=== PATIENT | female | born 1970 | race African-American/Black ===

== ENCOUNTER 2017-03-18 10:15 | Emergency (ER) | payer MEDICAID ==
[2017-03-18] MEDS ORDERED: Ketorolac 60 MG/2 ML SDV IM ONE (11:18)
--- NOTE | 2017-03-18 11:23 | EDM.PDOC ---
ED HPI GENERAL MEDICAL PROBLEM - General Chief Complaint: Back Pain or Injury Stated Complaint: BACK PAIN Time Seen by Provider: 03/18/17 11:00 Source of Information: Reports: Patient History Limitations: Reports: No Limitations - History of Present Illness INITIAL COMMENTS - FREE TEXT/NARRATIVE: Peyton Quintanilla : 1970 M# [id number] # [id number] HISTORY AND PHYSICAL: History of present illness: [Patient comes to the emergency room complaining of mid low back pain. Reports that she was diagnosed with spondylolisthesis about 1 year ago by a provider in [place]. Admits to chronic low-level back pain. Pain has become more intense over the past 2 days after walking on a treadmill for exercise. She typically does not exercise. The pain is in the same area as her chronic pain and has not changed other than in intensity. Rates her pain as 9 out of 10. She follows regularly with MOISÉS Anderson at [facility], but hasnt discussed this with her yet. Complains of mid sacral area pain which she describes as a throbbing sensation. Shes been prescribed diclofenac which she takes 1-2 tabs daily for her bilateral knee pain. She's not taken any other medications for her symptoms. Denies fever and chills. No change with urination , dysuria, or incontinence of bowel or urine. She currently is having her period. No radiation of pain to her hips down her buttocks or either leg. No weakness or difficulty walking. Denies chest pain shortness of breath and difficulty breathing. Hx of HTN, depression. ] Review of systems: As per history of present illness and below otherwise all systems reviewed and negative. Past medical history: As per history of present illness and as reviewed below otherwise noncontributory. Surgical history: As per history of present illness and as reviewed below otherwise noncontributory. Social history: No reported history of drug or alcohol abuse. Family history: As per history of present illness and as reviewed below otherwise noncontributory. Physical exam: Gen.: Well-developed overweight female in no acute distress. Appears very comfortable lying on exam bed. HEENT: Atraumatic, normocephalic. Oral mucous membranes are pink and moist. Lungs: Clear to auscultation, breath sounds equal bilaterally. Heart: S1S2, regular rate and rhythm. Negative for murmur. Abdomen: Soft, nondistended, nontender. No CVA tenderness. Pelvis: Stable nontender. Genitourinary: Deferred. Rectal: Deferred. Back: Point tenderness over lower lumbar and upper sacral areas. Negative straight leg raise. Patellar reflexes are 2+ and equal bilaterally. Extremities: Atraumatic, negative for cords or calf pain. Neurovascular unremarkable. Neuro: Awake, alert, oriented. Motor and sensory unremarkable throughout. Exam nonfocal. Diagnostics: [Lumbar x-ray, UA w/ micro] Therapeutics: [Toradol 60mg IM] Impression: [Low back pain] Plan: [Toradol 60 mg given IM in the ER. Rx written for hydrocodone 5/325 mg #10 sig one by mouth twice a day as needed for pain 0 refills. Reviewed with patient that her urinalysis shows blood which would be expected due to her menses and no other abnormalities. L/S x-ray shows no acute findings. Of note, no spondylolisthesis is visualized by radiologist. Patient is encouraged to use [id number] analgesics for mild to moderate pain. She has the prescription for hydrocodone to use as needed. This medication will not be refilled through the ER. Heating pads and ice packs as needed. Recommend gentle exercises and stretching. She is in agreement with today's plan. All of her questions are answered and concerns are addressed. ] Definitive disposition and diagnosis as appropriate pending reevaluation and review of above. Lower Back Pain Score (Numeric/FACES): 9 - Related Data Allergies Allergy/AdvReac Type Severity Reaction Status Date / Time No Known Allergies Allergy Verified 03/18/17 11:31 Home Meds: Home Meds Atenolol 50 mg PO DAILY 03/18/17 [History] Hydrochlorothiazide 25 mg PO DAILY 03/18/17 [History] Losartan [Cozaar] 25 mg PO DAILY 03/18/17 [History] Venlafaxine [Effexor XR] 150 mg PO DAILY 03/18/17 [History] buPROPion HCl [Wellbutrin Xl] 300 mg PO DAILY 03/18/17 [History] ED ROS GENERAL - Review of Systems Review Of Systems: ROS reveals no pertinent complaints other than HPI. ED EXAM,LOWER BACK PAIN/INJURY - Physical Exam Exam: See Below Course - Vital Signs Last Recorded V/S: Last Vital Signs Temp 96.8 F 03/18/17 12:55 Pulse 58 L 03/18/17 12:55 Resp 18 03/18/17 12:55 BP 160/90 H 03/18/17 12:55 Pulse Ox 97 03/18/17 12:55 - Orders/Labs/Meds Labs: Laboratory Tests 03/18/17 Range/Units 11:25 Urine Color DARK YELLOW Urine Appearance CLOUDY Urine pH 5.5 (5.0-8.0) Ur Specific [place] 1.020 (1.001-1.035) Urine Protein TRACE (NEGATIVE) mg/dL Urine Glucose (UA) NEGATIVE (NEGATIVE) mg/dL Urine Ketones NEGATIVE (NEGATIVE) mg/dL Urine Occult Blood LARGE H (NEGATIVE) Urine Nitrite NEGATIVE (NEGATIVE) Urine Bilirubin SMALL H (NEGATIVE) Urine Ictotest NEGATIVE Urine Urobilinogen 0.2 (<2.0) EU/dL Ur Leukocyte Esterase NEGATIVE (NEGATIVE) Urine RBC 117-122 (0-2/HPF) Urine WBC 0-2 (0-5/HPF) Ur Epithelial Cells RARE (NONE-FEW) Urine Bacteria RARE (NEGATIVE) Meds: Medications Discontinued Medications Generic Name Dose Route Start Last Admin Trade Name Freq PRN Reason Stop Dose Admin Ketorolac Tromethamine 60 mg 03/18/17 11:18 03/18/17 11:39 Toradol IM 03/18/17 11:19 60 mg ONETIME ONE Administration Departure - Departure Time of Disposition: 12:40 Disposition: Home, Self-Care 01 Clinical Impression: Chronic low back pain - Discharge Information Instructions: Back Pain, Adult, Lenq-ad-Avan Referrals: PCP,None [Primary Care Provider] - Forms: ED Department Discharge Additional Instructions: The following information is given to patients seen in the emergency department who are being discharged to home. This information is to outline your options for follow-up care. We provide all patients seen in our emergency department with a follow-up referral. The need for follow-up, as well as the timing and circumstances, are variable depending upon the specifics of your emergency department visit. If you don't have a primary care physician on staff, we will provide you with a referral. We always advise you to contact your personal physician following an emergency department visit to inform them of the circumstance of the visit and for follow-up with them and/or the need for any referrals to a consulting specialist. The emergency department will also refer you to a specialist when appropriate. This referral assures that you have the opportunity for follow-up care with a specialist. All of these measure are taken in an effort to provide you with optimal care, which includes your follow-up. Under all circumstances we always encourage you to contact your private physician who remains a resource for coordinating your care. When calling for follow-up care, please make the office aware that this follow-up is from your recent emergency room visit. If for any reason you are refused follow-up, please contact the [facility] emergency department at and asked to speak to the emergency department charge nurse. [address] [id number] Follow up with your primary care provider at the clinic listed above as scheduled next week. Recommend diclofenac 3 times daily, may alternate with Tylenol as needed for continued discomfort. You have been given a prescription for hydrocodone. This is for moderate to severe pain. Do not take Tylenol with this medication. Heating pad, ice packs. Gentle stretching. Return to ER as needed as discussed.
--- NOTE | 2017-03-18 12:01 | CR ---
Lumbar spine 3 views There is a very gentle leftward convex rotoscoliosis apex leftward at L2. Pedicles are intact and di scs are generally well preserved in stature. There is no spondylolysis or spondylolisthesis. Impression: Gentle rotoscoliosis without evidence of acute pathology. No spondylolysis or spondyloli sthesis and incidental note is made of prior cholecystectomy
[2017-03-18 12:57] VITALS: BP 160/90
== END 2017-03-18 12:55 | disposition home or self-care (01) ==
LOC: MW.ED 10:15
DX: G89.29 Other chronic pain (principal); M54.5 Low back pain
CPT/HCPCS: 72100; 81001; 96372; 99283; J1885; 99282

== ENCOUNTER 2017-09-20 15:58 | Emergency (ER) | payer MEDICAID ==
[2017-09-20] MEDS ORDERED: Azithromycin 250 MG Tab PO ONE (16:22)
--- NOTE | 2017-09-20 16:25 | EDM.PDOC ---
ED HPI GENERAL MEDICAL PROBLEM - General Chief Complaint: Genitourinary Problem Stated Complaint: std check Time Seen by Provider: 09/20/17 16:10 Source of Information: Reports: Patient History Limitations: Reports: No Limitations - History of Present Illness INITIAL COMMENTS - FREE TEXT/NARRATIVE: History of present illness: []Patient comes in after being exposed to chlamydia from her . Patient states she has been feeling well and excessively tired. She does take meds for depression that was the first illness that she has this infection. Review of systems: As per history of present illness and below otherwise all systems reviewed and negative. Past medical history: As per history of present illness and as reviewed below otherwise noncontributory. Surgical history: As per history of present illness and as reviewed below otherwise noncontributory. Social history: No reported history of drug or alcohol abuse. Family history: As per history of present illness and as reviewed below otherwise noncontributory. Physical exam: General: Well developed, well nourished in NAD HEENT: Atraumatic, normocephalic, pupils reactive, negative for conjunctival pallor or scleral icterus, mucous membranes moist, throat clear, neck supple, nontender, trachea midline. Lungs: Clear to auscultation, breath sounds equal bilaterally, chest nontender. Heart: S1S2, regular, negative for clicks, rubs, or JVD. Abdomen: Soft, nondistended, nontender. Negative for masses or hepatosplenomegaly. Negative for costovertebral tenderness. Pelvis: Stable nontender. Genitourinary: Deferred. Rectal: Deferred. Extremities: Atraumatic, negative for cords or calf pain. Neurovascular unremarkable. Neuro: Awake, alert, oriented. Cranial nerves II through XII unremarkable. Cerebellum unremarkable. Motor and sensory unremarkable throughout. Exam nonfocal. Diagnostics: [] Therapeutics: []Zithromax 1 g while in the ED Impression: []Chlamydia exposure Plan: []No intercourse until symptoms gone and to her sexual partner is completely treated Definitive disposition and diagnosis as appropriate pending reevaluation and review of above. - Related Data Allergies Allergy/AdvReac Type Severity Reaction Status Date / Time No Known Allergies Allergy Verified 09/20/17 16:16 Home Meds: Home Meds Hydrochlorothiazide 25 mg PO DAILY 03/18/17 [History] Losartan [Cozaar] 25 mg PO DAILY 03/18/17 [History] Venlafaxine [Effexor XR] 150 mg PO DAILY 03/18/17 [History] buPROPion HCl [Wellbutrin Xl] 300 mg PO DAILY 03/18/17 [History] Metoprolol Tartrate [Lopressor] 50 mg PO DAILY 09/20/17 [History] Past Medical History - Past Health History Medical/Surgical History: Denies Medical/Surgical History Cardiovascular History: Reports: High Cholesterol, Hypertension Psychiatric History: Reports: Depression - Infectious Disease History Infectious Disease History: Reports: Chicken Pox Social & Family History - Family History Family Medical History: Noncontributory - Tobacco Use Smoking Status *Q: Never Smoker Second Hand Smoke Exposure: No - Caffeine Use Caffeine Use: Reports: None - Recreational Drug Use Recreational Drug Use: No ED ROS GENERAL - Review of Systems Review Of Systems: See Below (See history of present illness) ED EXAM, RENAL/ - Physical Exam Exam: See Below (See history of present illness) Course - Vital Signs Last Recorded V/S: Last Vital Signs Temp 96.6 F 09/20/17 16:15 Pulse 68 09/20/17 16:15 Resp 18 09/20/17 16:15 BP 135/80 09/20/17 16:15 Pulse Ox 98 09/20/17 16:15 - Orders/Labs/Meds Meds: Medications Discontinued Medications Generic Name Dose Route Start Last Admin Trade Name Fortinoq PRN Reason Stop Dose Admin Azithromycin 1,000 mg 09/20/17 16:22 Zithromax PO 09/20/17 16:23 ONETIME ONE Departure - Departure Time of Disposition: 16:25 Disposition: Home, Self-Care 01 Condition: Good Clinical Impression: Exposure to chlamydia - Discharge Information Referrals: Tiffany Cuevas NP [Primary Care Provider] - Additional Instructions: The following information is given to patients seen in the emergency department who are being discharged to home. This information is to outline your options for follow-up care. We provide all patients seen in our emergency department with a follow-up referral. The need for follow-up, as well as the timing and circumstances, are variable depending upon the specifics of your emergency department visit. If you don't have a primary care physician on staff, we will provide you with a referral. We always advise you to contact your personal physician following an emergency department visit to inform them of the circumstance of the visit and for follow-up with them and/or the need for any referrals to a consulting specialist. The emergency department will also refer you to a specialist when appropriate. This referral assures that you have the opportunity for follow-up care with a specialist. All of these measure are taken in an effort to provide you with optimal care, which includes your follow-up. Under all circumstances we always encourage you to contact your private physician who remains a resource for coordinating your care. When calling for follow-up care, please make the office aware that this follow-up is from your recent emergency room visit. If for any reason you are refused follow-up, please contact the [facility] Emergency Department at and asked to speak to the emergency department charge nurse. [facility] [address] [place] [id number]
[2017-09-20 18:21] VITALS: BP 135/86
== END 2017-09-20 16:34 | disposition home or self-care (01) ==
LOC: MW.ED 15:58
DX: Z20.2 Contact with and (suspected) exposure to infections with a predominantly sexual mode of transmission (principal); I10 Essential (primary) hypertension; E78.00 Pure hypercholesterolemia, unspecified; Z79.899 Other long term (current) drug therapy
CPT/HCPCS: 99283; A9270; 99282

== ENCOUNTER 2017-12-04 14:07 | Emergency (ER) | payer MEDICAID ==
[2017-12-04 15:39] VITALS: BP 145/96
--- NOTE | 2017-12-04 16:08 | EDM.PDOC ---
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 PAIN Time Seen by Provider: 12/04/17 16:05 Source of Information: Reports: Patient History Limitations: Reports: No Limitations - History of Present Illness INITIAL COMMENTS - FREE TEXT/NARRATIVE: HISTORY AND PHYSICAL: []47-year-old female presenting with concerns over possible STD pelvic pain History of Present Illness: []Notable that patient was here in September with STD check not followed up is recommended with her primary care at [facility] She does complain of having vaginal discharge malodorous Review of Systems: As per history of present illness and below otherwise all systems reviewed and negative. Past medical history: As per history of present illness and as reviewed below otherwise noncontributory. Surgical history: As per history of present illness and as reviewed below otherwise noncontributory. Social history: No reported history of drug or alcohol abuse. Family history: As per history of present illness and as reviewed below otherwise noncontributory. Physical exam: Alert female answering questions appropriately, she speaking in full sentences without any shortness of breath. HEENT: Atraumatic, normocehpalic, pupils reactive, negative for conjunctival pallor or scleral icterus, mucous membranes moist, throat clear, neck supple, nontender, trachea midline. Lungs: Clear to auscultation, breath sounds equal bilaterally, chest non tender. Heart: S1S2, regular, negative for clicks, rubs, or JVD. Abdomen: Soft, mildly distended, tender left pelvis. Negative for masses or hepatossplenmegaly. Negative for costovertebral tenderness. Pelvis: Stable nontender. Genitourinary: Deferred. Rectal: Deferred Extremities: Atraumatic, negative for cords or calf pain. Neurovascular unremarkable. Neuro: Awake, alert, oriented. Cranial nerves II through XII unremarkable. Cerebellum unremarkable. Motor and sensory unremarkable throughout. Exam nonfocal. Diagnostics: []UA Chlamydia GC Trichomonas Therapeutics: [] Impression: []Bacterial vaginitis Plan: []MetroGel daily 5 days Follow up in one week with your primary care provider Repeat ultrasound in 8 weeks Return to emergency room Definitive disposition and diagnosis as appropriate pending reevaluation and review of above. Onset: Gradual Duration: Day(s): pelvic Pain Score (Numeric/FACES): 7 - Related Data Allergies Allergy/AdvReac Type Severity Reaction Status Date / Time No Known Allergies Allergy Verified 12/04/17 15:34 Home Meds: Home Meds Hydrochlorothiazide 50 mg PO DAILY 03/18/17 [History] Losartan [Cozaar] 50 mg PO DAILY 03/18/17 [History] Venlafaxine [Effexor XR] 225 mg PO DAILY 03/18/17 [History] buPROPion HCl [Wellbutrin Xl] 100 mg PO DAILY 03/18/17 [History] metroNIDAZOLE [Metrogel-Vaginal] 70 gm VG DAILY #5 gel.w.appl 12/04/17 [Rx] Past Medical History - Past Health History Medical/Surgical History: Denies Medical/Surgical History HEENT History: Reports: Sinusitis Cardiovascular History: Reports: High Cholesterol, Hypertension Psychiatric History: Reports: Depression - Infectious Disease History Infectious Disease History: Reports: None - Past Surgical History HEENT Surgical History: Reports: Myringotomy w Tube(s), Naso-Sinus Surgery Social & Family History - Family History Family Medical History: Noncontributory - Tobacco Use Smoking Status *Q: Never Smoker Second Hand Smoke Exposure: No - Caffeine Use Caffeine Use: Reports: None - Alcohol Use Days Per Week of Alcohol Use: 2 Number of Drinks Per Day: 3 Total Drinks Per Week: 6 - Recreational Drug Use Recreational Drug Use: No ED ROS GENERAL - Review of Systems Review Of Systems: ROS reveals no pertinent complaints other than HPI. ED EXAM, RENAL/ - Physical Exam Exam: See Below (see dictation) Course - Vital Signs Last Recorded V/S: Last Vital Signs Temp 36.4 C 12/04/17 15:36 Pulse 78 12/04/17 15:36 Resp 20 12/04/17 15:36 BP 145/96 H 12/04/17 15:36 Pulse Ox 96 12/04/17 15:36 - Orders/Labs/Meds Orders: Active Orders 24 hr Category Date Time Status Pelvis Non OB Comp [US] Stat Exams 12/04/17 16:08 Taken CHLAMYDIA AND GONORRHEA BY [facility] Stat Lab 12/04/17 16:00 Received Labs: Laboratory Tests 12/04/17 Range/Units 16:00 Ana species DNA NEGATIVE (NEGATIVE) Gardnerella DNA Probe POSITIVE H (NEGATIVE) Trichomonas DNA Probe NEGATIVE (NEGATIVE) Departure - Departure Time of Disposition: 18:10 Disposition: Home, Self-Care 01 Condition: Good Clinical Impression: Bacterial vaginosis - Discharge Information Prescriptions: metroNIDAZOLE [Metrogel-Vaginal] 70 gm VG DAILY #5 gel.w.appl Instructions: Bacterial Vaginosis Referrals: Tiffany Cuevas NP [Primary Care Provider] - Forms: ED Department Discharge Additional Instructions: The following information is given to patients seen in the emergency department who are being discharged to home. This information is to outline your options for follow-up care. We provide all patients seen in our emergency department with a follow-up referral. The need for follow-up, as well as the timing and circumstances, are variable depending upon the specifics of your emergency department visit. If you don't have a primary care physician on staff, we will provide you with a referral. We always advise you to contact your personal physician following an emergency department visit to inform them of the circumstance of the visit and for follow-up with them and/or the need for any referrals to a consulting specialist. The emergency department will also refer you to a specialist when appropriate. This referral assures that you have the opportunity for followup care with a specialist. All of these measure are taken in an effort to provide you with optimal care, which includes your followup. Under all circumstances we always encourage you to contact your private physician who remains a resource for coordinating your care. When calling for followup care, please make the office aware that this follow-up is from your recent emergency room visit. If for any reason you are refused follow-up, please contact the emergency department at and asked to speak to the emergency department charge nurse. Follow-up with your primary care provider in one week Prescription for MetroGel has been ordered once a day 5 days Vaginal rest while this is being used Return to emergency room as needed and discussed - My Orders Last 24 Hours: My Active Orders 12/04/17 16:00 CHLAMYDIA AND GONORRHEA BY [facility] Stat 12/04/17 16:08 Pelvis Non OB Comp [US] Stat - Assessment/Plan Last 24 Hours: My Active Orders 12/04/17 16:00 CHLAMYDIA AND GONORRHEA BY [facility] Stat 12/04/17 16:08 Pelvis Non OB Comp [US] Stat
--- NOTE | 2017-12-05 16:36 | US ---
EXAM DATE: 12/04/17 PATIENT'S AGE: 47 Patient: MORAIMA BABIN Facility: [place], [place] Site . Site : 1970 Study: US Pelvis [id number]/2017 5:13:52 PM Ordering Physician: Doctor Parker Final Report: HISTORY: Low to mid pelvic pain for 2 weeks. TECHNIQUE: Transvaginal pelvic ultrasound. COMPARISON: No prior. FINDINGS: Uterus measures 9.1 x 5.3 x 5.7 cm in size. Endometrial stripe thickness is borderline thickened at 16 mm. 1.3 cm anterior uterine mass is likely a fibroid. Cervical nabothian cysts are present. - Left ovary measures 1.8 x 1.7 x 2.5 cm in size. There is a irregularly shaped cystic structure within the left ovary which measures approximately 1.1 cm in size. This may relate to a collapsing cyst or follicle. Blood flow is detected within the left ovary without findings of torsion. - Right ovary measures 2.1 x 1.8 x 1.0 cm in size and appears normal. - Trace amount of pelvic free fluid. IMPRESSION: 1. 1 cm cystic structure with irregular morphology within the left ovary may relate to a collapsing cyst or follicle. Blood flow is detected within the left ovary without findings of torsion. 2. Borderline mildly abnormally thickened endometrial echo complex. Consider ultrasound followup for re-evaluation of endometrial stripe thickness in 6-8 weeks. Anterior uterine fibroid. 3. Trace pelvic free fluid. Dictated by Tom Garcia MD @ 12/04/2017 5:23:58 PM Dictated by: Tom Garcia MD @ 12/04/2017 17:24:03 (Electronic Signature) Report Signed by Proxy. [facility] CENTERCarlene
== END 2017-12-04 18:30 | disposition home or self-care (01) ==
LOC: MW.ED 14:07
DX: N76.0 Acute vaginitis (principal); I10 Essential (primary) hypertension; E78.00 Pure hypercholesterolemia, unspecified; Z79.899 Other long term (current) drug therapy
CPT/HCPCS: 76856; 76856-26; 87480; 87491; 87510; 87591; 87660; 99283; 99284-25

== ENCOUNTER 2018-11-09 09:29 | Day surgery (SDC) | payer BC, MEDICAID ==
[2018-11-08 10:38] LABS: CHLORIDE,CL 103 mmol/L (98-107); SODIUM,NA 140 mmol/L (136-145)
[~2018-11-09 09:29] MED LIST: Lactated Ringers 1,000 ML IV SCH; Sodium Chloride 0.9% 10 ML SDV IV PRN; Sodium Chloride 0.9% 10 ML Syringe FLUSH PRN; Sodium Chloride 0.9% 2.5 ML Syringe FLUSH PRN; ceFAZolin 2 GM in Premix Bag 1 BAG IV ONE
--- NOTE | 2018-11-09 10:39 | PCM.PREANE ---
Preanesthetic Assessment - Anesthesia/Transfusion/Family Hx Anesthesia History: Prior Anesthesia Reaction Type of Anesthesia Reaction: Excessive Nausea/Vomiting Family History of Anesthesia Reaction: No Transfusion History: No Prior Transfusion(s) - Review of Systems General: No Symptoms Pulmonary: No Symptoms Cardiovascular: No Symptoms Gastrointestinal: No Symptoms Neurological: No Symptoms Other: Reports: None - Physical Assessment NPO Status Date: 11/08/18 Height: 55 ft Weight: 99.337 kg ASA Class: 2 Mental Status: Alert & Oriented x3 Airway Class: Mallampati = 1 Dentition: Reports: Normal Dentition ROM/Head Extension: Full Lungs: Clear to Auscultation, Normal Respiratory Effort Cardiovascular: Regular Rate, Regular Rhythm - Lab Values: Laboratory Last Values WBC 5.19 K/uL (4.0-11.0) 11/08/18 09:55 RBC 5.19 M/uL (4.30-5.90) 11/08/18 09:55 Hgb 14.4 g/dL (12.0-16.0) 11/08/18 09:55 Hct 43.4 % (36.0-46.0) 11/08/18 09:55 MCV 83.6 fL (80.0-98.0) 11/08/18 09:55 MCH 27.7 pg (27.0-32.0) 11/08/18 09:55 MCHC 33.2 g/dL (31.0-37.0) 11/08/18 09:55 RDW Std Deviation 43.3 fl (28.0-62.0) 11/08/18 09:55 RDW Coeff of Tiffany 14 % (11.0-15.0) 11/08/18 09:55 Plt Count 227 K/uL (150-400) 11/08/18 09:55 MPV 12.20 fL (7.40-12.00) H 11/08/18 09:55 Nucleated RBC % 0.0 /100WBC 11/08/18 09:55 Nucleated RBCs # 0 K/uL 11/08/18 09:55 Sodium 140 mmol/L (136-145) 11/08/18 09:55 Potassium 3.8 mmol/L (3.5-5.1) 11/08/18 09:55 Chloride 103 mmol/L (98-107) 11/08/18 09:55 Carbon Dioxide 25.5 mmol/L (21.0-32.0) 11/08/18 09:55 BUN 10 mg/dL (7.0-18.0) 11/08/18 09:55 Creatinine 0.9 mg/dL (0.6-1.0) 11/08/18 09:55 Est Cr Clr Drug Dosing 118.58 mL/min 11/08/18 09:55 Estimated GFR (MDRD) > 60.0 ml/min 11/08/18 09:55 Glucose 107 mg/dL (74-106) H 11/08/18 09:55 Calcium 9.2 mg/dL (8.5-10.1) 11/08/18 09:55 HCG, Qual NEGATIVE (NEG) 11/08/18 09:55 Blood Type O POSITIVE 11/08/18 09:55 Antibody Screen NEGATIVE 11/08/18 09:55 - Allergies Allergies/Adverse Reactions: Allergies Allergy/AdvReac Type Severity Reaction Status Date / Time No Known Allergies Allergy Verified 11/06/18 08:18 - Blood Blood Available: No - Anesthesia Plan Pre-Op Medication Ordered: None - Acknowledgements Anesthesia Type Planned: General Anesthesia Pt an Appropriate Candidate for the Planned Anesthesia: Yes Alternatives and Risks of Anesthesia Discussed w Pt/Guardian: Yes Pt/Guardian Understands and Agrees with Anesthesia Plan: Yes PreAnesthesia Questionnaire - Past Health History Medical/Surgical History: Denies Medical/Surgical History HEENT History: Reports: Impaired Vision, Sinusitis, Other (See Below) Other HEENT History: wears glasses Cardiovascular History: Reports: Hypertension Respiratory History: Reports: None Gastrointestinal History: Reports: None Genitourinary History: Reports: None 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: Musculoskeletal History: Reports: Osteoarthritis Neurological History: Reports: None Psychiatric History: Reports: Anxiety, Depression Endocrine/Metabolic History: Reports: Obesity/BMI 30+ Hematologic History: Reports: None Immunologic History: Reports: None Oncologic (Cancer) History: Reports: None Dermatologic History: Reports: None - Infectious Disease History Infectious Disease History: Reports: Chicken Pox - Past Surgical History Head Surgeries/Procedures: Reports: None HEENT Surgical History: Reports: Adenoidectomy, Myringotomy w Tube(s), Naso- Sinus Surgery, Tonsillectomy Cardiovascular Surgical History: Reports: None Respiratory Surgical History: Reports: None GI Surgical History: Reports: Cholecystectomy Female Surgical History: Reports: Tubal Ligation Endocrine Surgical History: Reports: None Neurological Surgical History: Reports: None Musculoskeletal Surgical History: Reports: None Oncologic Surgical History: Reports: None Dermatological Surgical History: Reports: None - SUBSTANCE USE Smoking Status *Q: Never Smoker Days Per Week of Alcohol Use: 7 Number of Drinks Per Day: 1 Total Drinks Per Week: 7 Recreational Drug Type: Reports: Marijuana/Hashish Recreational Drug Last Use: 11/06/18 - HOME MEDS Home Medications: Home Meds Hydrochlorothiazide 25 mg PO DAILY 03/18/17 [History] Losartan [Cozaar] 100 mg PO DAILY 03/18/17 [History] Venlafaxine [Effexor XR] 225 mg PO DAILY 03/18/17 [History] buPROPion HCl [Wellbutrin Xl] 150 mg PO DAILY 03/18/17 [History] Metoprolol Succinate 25 mg PO DAILY 11/06/18 [History] risperiDONE [RisperiDAL] 0.5 tab PO BEDTIME PRN 11/06/18 [History] - CURRENT (IN HOUSE) MEDS Current Meds: Current Medications Lactated Ringer's (Ringers, Lactated) 1,000 mls @ 125 mls/hr IV ASDIRECTED CECE Sodium Chloride (Saline Flush) 10 ml FLUSH ASDIRECTED PRN PRN Reason: Keep Vein Open Sodium Chloride (Saline Flush) 2.5 ml FLUSH ASDIRECTED PRN PRN Reason: Keep Vein Open Sodium Chloride (Normal Saline) 10 ml IV ASDIRECTED PRN PRN Reason: IV Use Discontinued Medications Cefazolin Sodium/Dextrose 2 gm (/ Premix) 50 mls @ 100 mls/hr IV ONETIME ONE Stop: 11/08/18 09:55
[2018-11-09] MEDS ORDERED: Midazolam 1 MG/ML 2 ML SDV ONE (10:59)
[2018-11-09] MEDS ORDERED: fentaNYL 100 MCG/2 ML SDV ONE ×2 (11:00→13:16)
[2018-11-09] MEDS ORDERED: Lidocaine 2% 5 ML SDV ONE (11:01)
[2018-11-09] MEDS ORDERED: Propofol 200 MG/20 ML SDV ONE (11:05)
[2018-11-09] MEDS ORDERED: HYDROmorphone 2 MG/ML Syringe ONE ×2 (13:02→14:30)
[2018-11-09] MEDS ORDERED: Ondansetron 4 MG/2 ML SDV ONE ×2 (13:08)
[2018-11-09] MEDS ORDERED: Dexamethasone 4 MG/ML 5 ML MDV ONE (13:08)
[2018-11-09] MEDS ORDERED: ceFAZolin/Dextrose,Iso-Osmotic 2 GM/50 ML Duplex Bag IV ONE (13:08)
[2018-11-09] MEDS ORDERED: Fluorescein 5 ML Vial ONE (13:14)
[2018-11-09] MEDS ORDERED: Labetalol 100 MG/20 ML MDV ONE (13:27)
[2018-11-09] MEDS ORDERED: Metoprolol Tartrate 5 MG/5 ML SDV ONE (13:37)
[2018-11-09] MEDS ORDERED: Sugammadex Sodium 200 MG/2 ML VIAL ONE (14:15)
[2018-11-09] MEDS ORDERED: Ondansetron 4 MG/2 ML SDV IVPUSH PRN (14:16)
[2018-11-09] MEDS ORDERED: Morphine 4 MG/ML Syringe IVPUSH PRN (14:16)
[2018-11-09] MEDS ORDERED: Acetaminophen/oxyCODONE 325-5 MG Tab PO PRN (14:16)
[2018-11-09] MEDS ORDERED: Ketorolac 30 MG/ML SDV IVPUSH ONE (14:16)
[2018-11-09] MEDS ORDERED: Promethazine 25 MG/ML SDV IM PRN (14:16)
[2018-11-09] MEDS ORDERED: Ketorolac 30 MG/ML SDV IVPUSH PRN (14:16)
--- NOTE | 2018-11-09 14:21 | PCM.OPNOTE ---
- General Post-Op/Procedure Note Date of Surgery/Procedure: 11/09/18 Operative Procedure(s): TVH BSO TVT and cystoscopy Pre Op Diagnosis: Bleeding ,MARTINEZ Post-Op Diagnosis: Same Anesthesia Technique: General LMA Primary Surgeon: Jay Park EBL in mLs: 200 Complications: None Condition: Good Free Text/Narrative:: Intake & Output 11/08/18 11/09/18 11/09/18 22:59 06:59 14:59 Output Total 30 Balance -30
[2018-11-09] MEDS ORDERED: diphenhydrAMINE 50 MG/ML SDV ONE (15:09)
--- NOTE | 2018-11-09 15:33 | PCM.POSTAN ---
POST ANESTHESIA ASSESSMENT - MENTAL STATUS Mental Status: Alert, Oriented - RESPIRATORY Respiratory Status: Respiratory Rate WNL, Airway Patent, Supplemental Oxygen - CARDIOVASCULAR CV Status: Pulse Rate WNL, Blood Pressure Stable - GASTROINTESTINAL GI Status: No Symptoms - PAIN Pain Score: 2 - POST OP HYDRATION Hydration Status: Adequate & Stable (main complaint is itching - treated with benadryl)
[2018-11-09] MEDS: Acetaminophen/oxyCODONE 325-5 MG Tab PO PRN (20:32)
[2018-11-10] MEDS: Acetaminophen/oxyCODONE 325-5 MG Tab PO PRN ×2 (02:02→08:25)
--- NOTE | 2018-11-10 07:15 | PCM48HPAN ---
Post Anesthesia Note - EVALUATION WITHIN 48HRS OF ANESTHETIC Vital Signs in Normal Range: Yes Patient Participated in Evaluation: Yes Respiratory Function Stable: Yes Airway Patent: Yes Cardiovascular Function Stable: Yes Hydration Status Stable: Yes Pain Control Satisfactory: No (resting comfortably but asking for percocet every 1.5 hrs) Nausea and Vomiting Control Satisfactory: Yes Mental Status Recovered: Yes - COMMENTS/OBSERVATIONS Free Text/Narrative:: still complaining of itching but took shower this morning and feeling better
[2018-11-10 07:58] VITALS: BP 127/70
--- NOTE | 2018-11-10 09:20 | PCM.SURGPN ---
- General Info Date of Service: 11/10/18 POD#: 1 Functional Status: Reports: Pain Controlled - Review of Systems General: Reports: No Symptoms HEENT: Reports: No Symptoms Pulmonary: Reports: No Symptoms Cardiovascular: Reports: No Symptoms Gastrointestinal: Reports: No Symptoms Genitourinary: Reports: No Symptoms Musculoskeletal: Reports: No Symptoms Skin: Reports: No Symptoms Neurological: Reports: No Symptoms Psychiatric: Reports: No Symptoms - Patient Data Vitals - Most Recent: Last Vital Signs Temp 37.1 C 11/10/18 07:20 Pulse 88 11/10/18 07:20 Resp 18 11/10/18 07:20 BP 127/70 11/10/18 07:20 Pulse Ox 99 11/10/18 07:20 Weight - Most Recent: 99.337 kg I&O - Last 24 Hours: Intake & Output 11/09/18 11/10/18 11/10/18 22:59 06:59 14:59 Intake Total 200 Output Total 250 225 Balance -50 -225 Lab Results Last 24 Hrs: Laboratory Results - last 24 hr 11/10/18 11/10/18 Range/Units 06:20 06:20 WBC 10.42 (4.0-11.0) K/uL RBC 3.62 L (4.30-5.90) M/uL Hgb 9.8 L (12.0-16.0) g/dL Hct 30.6 L (36.0-46.0) % MCV 84.5 (80.0-98.0) fL MCH 27.1 (27.0-32.0) pg MCHC 32.0 (31.0-37.0) g/dL RDW Std Deviation 44.6 (28.0-62.0) fl RDW Coeff of Tiffany 14 (11.0-15.0) % Plt Count 210 (150-400) K/uL MPV 11.90 (7.40-12.00) fL Neut % (Auto) 83.3 H (48.0-80.0) % Lymph % (Auto) 10.6 L (16.0-40.0) % Garvin % (Auto) 6.1 (0.0-15.0) % Eos % (Auto) 0.0 (0.0-7.0) % Baso % (Auto) 0.0 (0.0-1.5) % Neut # (Auto) 8.7 H (1.4-5.7) K/uL Lymph # (Auto) 1.1 (0.6-2.4) K/uL Garvin # (Auto) 0.6 (0.0-0.8) K/uL Eos # (Auto) 0.0 (0.0-0.7) K/uL Baso # (Auto) 0.0 (0.0-0.1) K/uL Nucleated RBC % 0.0 /100WBC Nucleated RBCs # 0 K/uL Sodium 137 (136-145) mmol/L Potassium 4.0 (3.5-5.1) mmol/L Chloride 101 (98-107) mmol/L Carbon Dioxide 26.3 (21.0-32.0) mmol/L BUN 15 (7.0-18.0) mg/dL Creatinine 1.3 H (0.6-1.0) mg/dL Est Cr Clr Drug Dosing 82.09 mL/min Estimated GFR (MDRD) 43.5 ml/min Glucose 181 H (74-106) mg/dL Calcium 8.5 (8.5-10.1) mg/dL Med Orders - Current: Current Medications Lactated Ringer's (Ringers, Lactated) 1,000 mls @ 125 mls/hr IV ASDIRECTED [facility] Last Admin: 11/09/18 10:12 Dose: 125 mls/hr Ketorolac Tromethamine (Toradol) 30 mg IVPUSH Q6H PRN PRN Reason: Pain (severe 7-10) Stop: 11/14/18 14:17 Morphine Sulfate (Morphine) 4 mg IVPUSH Q2H PRN PRN Reason: Pain (severe 7-10) Ondansetron HCl (Zofran) 4 mg IVPUSH Q6H PRN PRN Reason: Nausea/Vomiting Last Admin: 11/10/18 02:13 Dose: 4 mg Oxycodone/Acetaminophen (Percocet 325-5 Mg) 1 tab PO Q4H PRN PRN Reason: Pain (moderate 4-6) Oxycodone/Acetaminophen (Percocet 325-5 Mg) 2 tab PO Q4H PRN PRN Reason: Pain (moderate 4-6) Last Admin: 11/10/18 08:25 Dose: 2 tab Promethazine HCl (Phenergan) 25 mg IM Q6H PRN PRN Reason: Nausea/Vomiting Sodium Chloride (Saline Flush) 10 ml FLUSH ASDIRECTED PRN PRN Reason: Keep Vein Open Sodium Chloride (Saline Flush) 2.5 ml FLUSH ASDIRECTED PRN PRN Reason: Keep Vein Open Sodium Chloride (Normal Saline) 10 ml IV ASDIRECTED PRN PRN Reason: IV Use Discontinued Medications Cefazolin Sodium/Dextrose (Ancef) Confirm Administered Dose 2 gm IV .STK-MED ONE Stop: 11/09/18 13:09 Dexamethasone (Dexamethasone) Confirm Administered Dose 20 mg .ROUTE .STK-MED ONE Stop: 11/09/18 13:09 Diphenhydramine HCl (Benadryl) Confirm Administered Dose 50 mg .ROUTE .STK-MED ONE Stop: 11/09/18 15:10 Fentanyl (Sublimaze) Confirm Administered Dose 100 mcg .ROUTE .STK-MED ONE Stop: 11/09/18 11:01 Fentanyl (Sublimaze) Confirm Administered Dose 100 mcg .ROUTE .STK-MED ONE Stop: 11/09/18 13:17 Fluorescein Sodium (Ak-Fluor) Confirm Administered Dose 5 ml .ROUTE .STK-MED ONE Stop: 11/09/18 13:15 Hydromorphone HCl (Dilaudid) Confirm Administered Dose 2 mg .ROUTE .STK-MED ONE Stop: 11/09/18 13:03 Hydromorphone HCl (Dilaudid) Confirm Administered Dose 2 mg .ROUTE .STK-MED ONE Stop: 11/09/18 14:31 Cefazolin Sodium/Dextrose 2 gm (/ Premix) 50 mls @ 100 mls/hr IV ONETIME ONE Stop: 11/08/18 09:55 Acetaminophen (Ofirmev) Confirm Administered Dose 100 mls @ as directed IV .STK- MED ONE Stop: 11/09/18 15:10 Ketorolac Tromethamine (Toradol) 30 mg IVPUSH ONETIME ONE Stop: 11/09/18 14:17 Labetalol HCl (Normodyne) Confirm Administered Dose 100 mg .ROUTE .STK-MED ONE Stop: 11/09/18 13:28 Lidocaine (Xylocaine-Mpf 2%) Confirm Administered Dose 5 ml .ROUTE .STK-MED ONE Stop: 11/09/18 11:02 Metoprolol Tartrate (Lopressor) Confirm Administered Dose 5 mg .ROUTE .STK-MED ONE Stop: 11/09/18 13:38 Midazolam HCl (Versed 1 Mg/Ml) Confirm Administered Dose 2 mg .ROUTE .STK-MED ONE Stop: 11/09/18 11:00 Ondansetron HCl (Zofran) Confirm Administered Dose 4 mg .ROUTE .STK-MED ONE Stop: 11/09/18 13:09 Ondansetron HCl (Zofran) Confirm Administered Dose 4 mg .ROUTE .STK-MED ONE Stop: 11/09/18 13:09 Propofol (Diprivan 20 Ml) Confirm Administered Dose 200 mg .ROUTE .STK-MED ONE Stop: 11/09/18 11:06 Sugammadex Sodium (Bridion) Confirm Administered Dose 200 mg .ROUTE .STK-MED ONE Stop: 11/09/18 14:16 - Exam Wound/Incisions: Healing Well General: Alert, Oriented HEENT: Pupils Equal Neck: Supple Lungs: Clear to Auscultation, Normal Respiratory Effort Cardiovascular: Regular Rate, Regular Rhythm GI/Abdominal Exam: Normal Bowel Sounds, Soft, Non-Tender, No Organomegaly, No Distention, No Abnormal Bruit, No Mass, Pelvis Stable Extremities: Normal Inspection, Normal Range of Motion, Non-Tender, No Pedal Edema, Normal Capillary Refill Skin: Warm, Dry, Intact Neurological: No New Focal Deficit Psy/Mental Status: Alert, Normal Affect, Normal Mood - Problem List Review Problem List Initiated/Reviewed/Updated: Yes - My Orders Last 24 Hours: Active Orders 24 hr Category Date Time Status Patient Status [ADT] Routine ADT 11/09/18 14:17 Active Antiembolic Devices [RC] PER UNIT ROUTINE Care 11/09/18 14:17 Active Notify Provider Vital Signs [RC] ASDIRECTED Care 11/09/18 14:17 Active Oxygen Therapy [RC] ASDIRECTED Care 11/09/18 14:17 Active RT Incentive Spirometry [RC] Q2HWA Care 11/09/18 14:17 Active Up ad Caity [RC] PER UNIT ROUTINE Care 11/09/18 14:17 Active Vital Signs [RC] PER UNIT ROUTINE Care 11/09/18 14:17 Active Regular Diet [DIET] Diet 11/09/18 Dinner Active Acetaminophen/oxyCODONE [Percocet 325-5 MG] Med 11/09/18 14:16 Active 1 tab PO Q4H PRN Acetaminophen/oxyCODONE [Percocet 325-5 MG] Med 11/09/18 14:16 Active 2 tab PO Q4H PRN Ketorolac [Toradol] Med 11/09/18 14:16 Active 30 mg IVPUSH Q6H PRN Morphine Med 11/09/18 14:16 Active 4 mg IVPUSH Q2H PRN Ondansetron [Zofran] Med 11/09/18 14:16 Active 4 mg IVPUSH Q6H PRN Promethazine [Phenergan] Med 11/09/18 14:16 Active 25 mg IM Q6H PRN Peripheral IV Discontinue [OM.PC] Routine Oth 11/09/18 14:17 Ordered Sequential Compression Device [OM.PC] Per Unit Routine Oth 11/09/18 14:17 Ordered Resuscitation Status Routine Resus Stat 11/09/18 14:16 Ordered Medication Orders Lactated Ringer's (Ringers, Lactated) 1,000 mls @ 125 mls/hr IV ASDIRECTED CECE Last Admin: 11/09/18 10:12 Dose: 125 mls/hr Ketorolac Tromethamine (Toradol) 30 mg IVPUSH Q6H PRN PRN Reason: Pain (severe 7-10) Stop: 11/14/18 14:17 Morphine Sulfate (Morphine) 4 mg IVPUSH Q2H PRN PRN Reason: Pain (severe 7-10) Ondansetron HCl (Zofran) 4 mg IVPUSH Q6H PRN PRN Reason: Nausea/Vomiting Last Admin: 11/10/18 02:13 Dose: 4 mg Oxycodone/Acetaminophen (Percocet 325-5 Mg) 1 tab PO Q4H PRN PRN Reason: Pain (moderate 4-6) Oxycodone/Acetaminophen (Percocet 325-5 Mg) 2 tab PO Q4H PRN PRN Reason: Pain (moderate 4-6) Last Admin: 11/10/18 08:25 Dose: 2 tab Admin: 11/10/18 02:02 Dose: 2 tab Admin: 11/09/18 20:32 Dose: 2 tab Promethazine HCl (Phenergan) 25 mg IM Q6H PRN PRN Reason: Nausea/Vomiting Sodium Chloride (Saline Flush) 10 ml FLUSH ASDIRECTED PRN PRN Reason: Keep Vein Open Sodium Chloride (Saline Flush) 2.5 ml FLUSH ASDIRECTED PRN PRN Reason: Keep Vein Open Sodium Chloride (Normal Saline) 10 ml IV ASDIRECTED PRN PRN Reason: IV Use - Assessment Assessment (Free Text/Narrative):: Status post BSO and TVT postoperative day #1 the patient is afebrile and vital sign essentially is normal she is ambulatory and she is voiding without any problem she have minimum spotting she is on regular diet tolerated very well and she passing urine without any problem - Plan Plan (Free Text/Narrative):: The patient sent home today she had a prescription of [place] 5-2 every 4-6 hours for pain and I gave her 30 tablets the postvasectomy instruction is given to the patient the patient is to given appointment to come to the office 1 week of her discharge
--- NOTE | 2018-11-10 15:57 | OR ---
SURGEON: Jay Park MD DATE OF PROCEDURE: PREOPERATIVE DIAGNOSES: Menometrorrhagia, stress urinary incontinence. POSTOPERATIVE DIAGNOSES: Menometrorrhagia, stress urinary incontinence. OPERATIONS PERFORMED: Total vaginal hysterectomy, bilateral vaginal salpingo-oophorectomy, TVT, and cystoscopy. 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 ANESTHESIA: General with endotracheal intubation. ESTIMATED BLOOD LOSS: 500 mL. COMPLICATIONS: None. FINDING: The uterus is about 8 week size. Both ovaries are essentially normal. The patient have abnormal urethrovesical angle. INDICATION FOR SURGERY: The patient is 47-year-old with symptomatic menometrorrhagia and the patient is also have stress urinary incontinence. She is admitted with intention of doing the TVH, BSO, TVT, and cystoscopy for further reason for indication, the reader referred to the admit note. PROCEDURE IN DETAIL: The patient was brought to the OR; properly identified; and after adequate level of anesthesia, patient was placed in lithotomy position; prepped and draped in sterile fashion as usual. Straight catheter was used to empty the bladder and short weighted speculum placed in vagina. Single-tooth tenaculum was applied to the cervix utilizing the electrocautery circular incision in the vaginal mucosa around the cervix was done and then the posterior cul-de-sac was entered posteriorly with the [place] scissors and the peritoneum and the vagina tacked posteriorly. The uterosacral ligament on both sides clamped with curved zeppelin transected and suture ligated with 2-0 Vicryl pop-off and held for further identification. The same thing was done with the cardinal ligament. Then, the cervical vesicle space was entered anteriorly. The bladder retracted completely away from the operative field and then anterior cul-de-sac was entered. The broad ligament was clamped with a curved Zeppelin from both side, transected, and suture ligated with 2-0 Vicryl pop-off. The uterine vessel suture ligated at this step. Then, multiple bites were taken on the broad ligament on both sides and one of them including the round ligament and transected and suture ligated with 2-0 Vicryl pop-off to shorten the superior pedicle. Then, using a tenaculum, the uterus was delivered posteriorly and the superior pedicle was clamped with a 90 degree zeppelin from both side and tubes and ovary included with the specimen. Next, the superior pedicle from both side tied first with Endoloops and then free tied and clamped is removed. Inspection of the operative field shows no oozing, no bleeding, then the uterosacral ligament and cardinal ligament anchored to the vagina at 3 and 9 o'clock for added vaginal support and the vagina was closed with 2-0 Vicryl interrupted [id number] suture. Attention was paid to the anterior vaginal wall and 1- inch beneath the urethra infiltrated with copious amount of normal saline and opened a midline utilizing the electrocautery and then the vaginal mucosa I dissected laterally in a tunneling fashion on both sides of the urethra, Solyx TVT in place with due amount of tension to elevate the urethrovesical angle and then the vaginal cuff in the midline is closed with 2-0 Vicryl and continuous interlocking for hemostasis. While we were doing this, we asked the Anesthesia to give the patient fluorescein and after finishing with a TVT; cystoscopy was performed. The bladder was intact. Both ureteric orifices seen with the dye coming from both them. At this time, the procedure ended. Instrument and sponge count was correct. The patient tolerated the procedure well, went to recovery room in stable general condition. MARYAM / ZACH /[id number]
== END 2018-11-10 10:20 | disposition home or self-care (01) ==
LOC: MW.SDS 09:29 → MW.OB 18:37 → MW.SDS 11-10 10:20
PROVIDERS: ATTEND Obstetrics & Gynecology
DX: D25.1 Intramural leiomyoma of uterus (principal); N72 Inflammatory disease of cervix uteri; N83.02 Follicular cyst of left ovary; N83.01 Follicular cyst of right ovary; I10 Essential (primary) hypertension; F33.3 Major depressive disorder, recurrent, severe with psychotic symptoms; N39.3 Stress incontinence (female) (male); E66.9 Obesity, unspecified; Z68.36 Body mass index [BMI] 36.0-36.9, adult; Z98.51 Tubal ligation status; Z79.899 Other long term (current) drug therapy
CPT/HCPCS: 36415; 58262; 80048; 84703; 85025; 85027; 86850; 86900; 86901; A9270; C1771; J0131; J0690; J1100; J1170; J2001; J2250; J2405; J2704; J3010; J3490; J7120; J1200

== ENCOUNTER 2019-04-11 09:06 | Emergency (ER) | payer BC, MEDICAID ==
--- NOTE | 2019-04-11 09:19 | EDM.PDOC ---
ED HPI GENERAL MEDICAL PROBLEM - General Chief Complaint: ENT Problem Stated Complaint: HEAD COLD, SINUS INFECTION Time Seen by Provider: 04/11/19 09:12 Source of Information: Reports: Patient History Limitations: Reports: No Limitations - History of Present Illness INITIAL COMMENTS - FREE TEXT/NARRATIVE: HISTORY AND PHYSICAL: History of present illness: Review of systems: As per history of present illness and below otherwise all systems reviewed and negative. Past medical history: As per history of present illness and as reviewed below otherwise noncontributory. Surgical history: As per history of present illness and as reviewed below otherwise noncontributory. Social history: See social history for further information Family history: As per history of present illness and as reviewed below otherwise noncontributory. Physical exam: General: HEENT: Atraumatic, normocephalic, pupils equal and reactive bilaterally, negative for conjunctival pallor or scleral icterus, mucous membranes moist, TMs normal bilaterally, throat clear, neck supple, nontender, trachea midline. No drooling or trismus noted. No meningeal signs. No hot potato voice noted. Lungs: Clear to auscultation, breath sounds equal bilaterally, chest nontender. Heart: S1S2, regular rate and rhythm without overt murmur Abdomen: Soft, nondistended, nontender. Negative for masses or hepatosplenomegaly. Negative for costovertebral tenderness. Pelvis: Stable nontender. Genitourinary: Deferred. Rectal: Deferred. Skin: Intact, warm, dry. No lesions or rashes noted. Extremities: Atraumatic, moves all extremities per self without difficulty or deficits, negative for cords or calf pain. Neurovascular unremarkable. Neuro: Awake, alert, oriented. Cranial nerves II through XII unremarkable. Cerebellum unremarkable. Motor and sensory unremarkable throughout. Exam nonfocal. Notes: Supportive care measures were reviewed and discussed. Voices understanding and is agreeable to plan of care. Denies any further questions or concerns at this time. Diagnostics: Therapeutics: Prescription: Impression: Plan: Definitive disposition and diagnosis as appropriate pending reevaluation and review of above. - Related Data Allergies Allergy/AdvReac Type Severity Reaction Status Date / Time No Known Allergies Allergy Verified 11/09/18 11:11 Home Meds: Home Meds Hydrochlorothiazide 25 mg PO DAILY 03/18/17 [History] Losartan [Cozaar] 100 mg PO DAILY 03/18/17 [History] Venlafaxine [Effexor XR] 225 mg PO DAILY 03/18/17 [History] buPROPion HCl [Wellbutrin Xl] 150 mg PO DAILY 03/18/17 [History] Metoprolol Succinate 25 mg PO DAILY 11/06/18 [History] risperiDONE [RisperiDAL] 0.5 tab PO BEDTIME PRN 11/06/18 [History] Past Medical History - Past Health History Medical/Surgical History: Denies Medical/Surgical History HEENT History: Reports: Impaired Vision, Sinusitis, Other (See Below) Other HEENT History: wears glasses Cardiovascular History: Reports: Hypertension Respiratory History: Reports: None Gastrointestinal History: Reports: None Genitourinary History: Reports: 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: Musculoskeletal History: Reports: Osteoarthritis Neurological History: Reports: None Psychiatric History: Reports: Anxiety, Depression Endocrine/Metabolic History: Reports: Obesity/BMI 30+ Hematologic History: Reports: None Immunologic History: Reports: None Oncologic (Cancer) History: Reports: None Dermatologic History: Reports: None - Infectious Disease History Infectious Disease History: Reports: Chicken Pox - Past Surgical History Head Surgeries/Procedures: Reports: None HEENT Surgical History: Reports: Adenoidectomy, Myringotomy w Tube(s), Naso- Sinus Surgery, Tonsillectomy Cardiovascular Surgical History: Reports: None Respiratory Surgical History: Reports: None GI Surgical History: Reports: Cholecystectomy Female Surgical History: Reports: Tubal Ligation Endocrine Surgical History: Reports: None Neurological Surgical History: Reports: None Musculoskeletal Surgical History: Reports: None Oncologic Surgical History: Reports: None Dermatological Surgical History: Reports: None Social & Family History - Family History Family Medical History: Noncontributory - Caffeine Use Caffeine Use: Reports: Coffee Departure - Discharge Information Referrals: PCP,Unknown [Primary Care Provider] -
--- NOTE | 2019-04-11 09:55 | EDM.PDOC ---
ED HPI GENERAL MEDICAL PROBLEM - General Chief Complaint: ENT Problem Stated Complaint: HEAD COLD, SINUS INFECTION Time Seen by Provider: 04/11/19 09:12 Source of Information: Reports: Patient History Limitations: Reports: No Limitations - History of Present Illness INITIAL COMMENTS - FREE TEXT/NARRATIVE: HISTORY AND PHYSICAL: History of present illness: Patient is a 48-year-old female who presents to the emergency room with complaints of left ear pain, sinus congestion and dry nonproductive cough 1 week. She states she has been using [id number] products and has not found any relief.Patient denies any fever, chills, headache, change in vision, syncope or near syncope. Denies any chest pain, back pain, shortness of breath. Denies any abdominal pain, nausea, vomiting, diarrhea, constipation or dysuria. Patient has been eating and drinking appropriately. Review of systems: As per history of present illness and below otherwise all systems reviewed and negative. Past medical history: As per history of present illness and as reviewed below otherwise noncontributory. Surgical history: As per history of present illness and as reviewed below otherwise noncontributory. Social history: See social history for further information Family history: As per history of present illness and as reviewed below otherwise noncontributory. Physical exam: General: Well-developed and well-nourished 48-year-old female. Alert and oriented. Nontoxic appearing and in no acute distress. HEENT: Atraumatic, normocephalic, pupils equal and reactive bilaterally, negative for conjunctival pallor or scleral icterus, mucous membranes moist, bilateral maxillary sinus tenderness and pressure with palpation, TMs normal bilaterally, throat clear, neck supple, nontender, trachea midline. No drooling or trismus noted. No meningeal signs. No hot potato voice noted. Lungs: Clear to auscultation, breath sounds equal bilaterally, chest nontender. Dry nonproductive cough noted. Heart: S1S2, regular rate and rhythm without overt murmur Abdomen: Soft, nondistended, nontender. Negative for masses. Negative for costovertebral tenderness. Skin: Intact, warm, dry. No lesions or rashes noted. Extremities: Atraumatic, moves all extremities per self without difficulty or deficits, negative for cords or calf pain. Neurovascular unremarkable. Neuro: Awake, alert, oriented. Cranial nerves II through XII unremarkable. Cerebellum unremarkable. Motor and sensory unremarkable throughout. Exam nonfocal. Notes: Medication and supportive care measures were reviewed and discussed. Voices understanding and is agreeable to plan of care. Denies any further questions or concerns at this time. Diagnostics: None Therapeutics: None Prescription: Phenergan w/ cod. Augmentin Abdoulaye Hall Impression: Sinusitis Cough Plan: 1. Please use Tylenol and/or Ibuprofen as needed for pain and fever management. 2. Get plenty of Rest. Encourage fluids to prevent dehydration. 3. Please follow up with your primary care provider. Return to the ED as needed as discussed. Definitive disposition and diagnosis as appropriate pending reevaluation and review of above. Right Ear Pain Score (Numeric/FACES): 6 - Related Data Allergies Allergy/AdvReac Type Severity Reaction Status Date / Time No Known Allergies Allergy Verified 04/11/19 09:43 Home Meds: Home Meds Hydrochlorothiazide 25 mg PO DAILY 03/18/17 [History] Losartan [Cozaar] 100 mg PO DAILY 03/18/17 [History] Venlafaxine [Effexor XR] 225 mg PO DAILY 03/18/17 [History] buPROPion HCl [Wellbutrin Xl] 150 mg PO DAILY 03/18/17 [History] Metoprolol Succinate 25 mg PO DAILY 11/06/18 [History] risperiDONE [RisperiDAL] 0.5 tab PO BEDTIME PRN 11/06/18 [History] Past Medical History - Past Health History Medical/Surgical History: Denies Medical/Surgical History HEENT History: Reports: Impaired Vision, Sinusitis, Other (See Below) Other HEENT History: wears glasses Cardiovascular History: Reports: Hypertension Respiratory History: Reports: None Gastrointestinal History: Reports: None Genitourinary History: Reports: None 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: Musculoskeletal History: Reports: Osteoarthritis Neurological History: Reports: None Psychiatric History: Reports: Anxiety, Depression Endocrine/Metabolic History: Reports: Obesity/BMI 30+ Hematologic History: Reports: None Immunologic History: Reports: None Oncologic (Cancer) History: Reports: None Dermatologic History: Reports: None - Infectious Disease History Infectious Disease History: Reports: Chicken Pox - Past Surgical History Head Surgeries/Procedures: Reports: None HEENT Surgical History: Reports: Adenoidectomy, Myringotomy w Tube(s), Naso- Sinus Surgery, Tonsillectomy Cardiovascular Surgical History: Reports: None Respiratory Surgical History: Reports: None GI Surgical History: Reports: Cholecystectomy Female Surgical History: Reports: Tubal Ligation Endocrine Surgical History: Reports: None Neurological Surgical History: Reports: None Musculoskeletal Surgical History: Reports: None Oncologic Surgical History: Reports: None Dermatological Surgical History: Reports: None Social & Family History - Family History Family Medical History: Noncontributory - Tobacco Use Smoking Status *Q: Never Smoker Second Hand Smoke Exposure: No - Caffeine Use Caffeine Use: Reports: Coffee - Recreational Drug Use Recreational Drug Use: No ED ROS ENT - Review of Systems Review Of Systems: ROS reveals no pertinent complaints other than HPI. ED EXAM, ENT - Physical Exam Exam: See Below (See dictation) Course - Vital Signs Last Recorded V/S: Last Vital Signs Temp 97.8 F 04/11/19 09:44 Pulse 65 04/11/19 09:44 Resp 16 04/11/19 09:44 BP 153/83 H 04/11/19 09:44 Pulse Ox 97 04/11/19 09:44 Departure - Departure Time of Disposition: 09:54 Disposition: Home, Self-Care 01 Clinical Impression: Cough Sinusitis Qualifiers: Sinusitis location: maxillary Chronicity: acute Recurrence: non-recurrent Qualified Code(s): J01.00 - Acute maxillary sinusitis, unspecified - Discharge Information Instructions: Sinusitis, Adult, [id number] Referrals: PCP,Unknown [Primary Care Provider] - Forms: ED Department Discharge Additional Instructions: The following information is given to patients seen in the emergency department who are being discharged to home. This information is to outline your options for follow-up care. We provide all patients seen in our emergency department with a follow-up referral. The need for follow-up, as well as the timing and circumstances, are variable depending upon the specifics of your emergency department visit. If you don't have a primary care physician on staff, we will provide you with a referral. We always advise you to contact your personal physician following an emergency department visit to inform them of the circumstance of the visit and for follow-up with them and/or the need for any referrals to a consulting specialist. The emergency department will also refer you to a specialist when appropriate. This referral assures that you have the opportunity for follow-up care with a specialist. All of these measure are taken in an effort to provide you with optimal care, which includes your follow-up. Under all circumstances we always encourage you to contact your private physician who remains a resource for coordinating your care. When calling for follow-up care, please make the office aware that this follow-up is from your recent emergency room visit. If for any reason you are refused follow-up, please contact the [facility] Department at and asked to speak to the emergency department charge nurse. [facility] [address] [place] [id number] [address] 1. Medications as prescribed. Please use Tylenol and/or Ibuprofen as needed for pain and fever management. 2. Get plenty of Rest. Encourage fluids to prevent dehydration. 3. Please follow up with your primary care provider. Return to the ED as needed as discussed.
[2019-04-11 10:04] VITALS: BP 150/83
== END 2019-04-11 10:05 | disposition home or self-care (01) ==
LOC: MW.ED 09:06
DX: J01.00 Acute maxillary sinusitis, unspecified (principal); R05 Cough; I10 Essential (primary) hypertension; F41.9 Anxiety disorder, unspecified; F32.9 Major depressive disorder, single episode, unspecified; E66.9 Obesity, unspecified; Z90.49 Acquired absence of other specified parts of digestive tract; Z98.51 Tubal ligation status; Z96.22 Myringotomy tube(s) status
CPT/HCPCS: 99282

== ENCOUNTER 2019-05-29 12:35 | Emergency (ER) | payer BC ==
--- NOTE | 2019-05-29 12:53 | EDM.PDOC ---
ED HPI GENERAL MEDICAL PROBLEM - General Chief Complaint: General Stated Complaint: INFECTION Time Seen by Provider: 05/29/19 12:40 Source of Information: Reports: Patient History Limitations: Reports: No Limitations - History of Present Illness INITIAL COMMENTS - FREE TEXT/NARRATIVE: HISTORY AND PHYSICAL: History of present illness: Patient is a 48-year-old female who presents to the emergency room today with complaints of vaginal irritation and discharge. She states previously she has had bacterial vaginosis 2 or 3 times within the last one year. She is concerned as her symptoms are similar but is unsure of why she "keeps getting it". Her who is at bedside states that they're in a monogamous relationship and is concerned she may have other STD's. Patient denies any fever, chills, headache, change in vision, syncope or near syncope. Denies any chest pain, back pain, shortness of breath or cough. Denies any abdominal pain, nausea, vomiting, diarrhea, constipation or dysuria. Has not noted any blood in urine or stool. Patient has been eating and drinking appropriately. Review of systems: As per history of present illness and below otherwise all systems reviewed and negative. Past medical history: As per history of present illness and as reviewed below otherwise noncontributory. Surgical history: As per history of present illness and as reviewed below otherwise noncontributory. Social history: See social history for further information Family history: As per history of present illness and as reviewed below otherwise noncontributory. Physical exam: General: Well-developed and well-nourished 48-year-old -[place] female. Alert and oriented. Nontoxic appearing and in no acute distress. HEENT: Atraumatic, normocephalic, pupils equal and reactive bilaterally, negative for conjunctival pallor or scleral icterus, mucous membranes moist, trachea midline. No drooling or trismus noted. No meningeal signs. No hot potato voice noted. Lungs: Clear to auscultation, breath sounds equal bilaterally, chest nontender. Heart: S1S2, regular rate and rhythm without overt murmur Abdomen: Soft, nondistended, nontender. Negative for masses or hepatosplenomegaly. Negative for costovertebral tenderness. Pelvis: Stable nontender. Genitourinary: Declined. Skin: Intact, warm, dry. No lesions or rashes noted. Extremities: Atraumatic, moves all extremities per self without difficulty or deficits. Neurovascular unremarkable. Neuro: Awake, alert, oriented. Cranial nerves II through XII unremarkable. Cerebellum unremarkable. Motor and sensory unremarkable throughout. Exam nonfocal. Notes: The ER is busy at this time, and there is no room available to do a pelvic exam. Rather than wait, she was offered to self swab for the G&C and wet prep. She states if a room opens up for a pelvic, she is agreeable but doesn't want to wait for this. Patient positive for bacterial vaginosis. Medication and supportive care measures were reviewed and discussed. Voices understanding and is agreeable to plan of care. Denies any further questions or concerns at this time. Diagnostics: UA, gonorrhea/chlamydia, wet prep Therapeutics: None Prescription: Flagyl Diflucan Impression: Bacterial Vaginosis Candidiasis Plan: 1. Gonorrhea and Chlamydia tests are send-outs, these results will not be available for 4-5 days. We call if these results are positive. Avoid any form of alcohol and please refrain from sex while taking the medications for your BV. 2. Follow up with Dr Park as we discussed. 3. Return to the ED as needed as discussed. Definitive disposition and diagnosis as appropriate pending reevaluation and review of above. - Related Data Allergies Allergy/AdvReac Type Severity Reaction Status Date / Time No Known Allergies Allergy Verified 04/11/19 09:43 Home Meds: Home Meds Hydrochlorothiazide 25 mg PO DAILY 03/18/17 [History] Losartan [Cozaar] 100 mg PO DAILY 03/18/17 [History] Venlafaxine [Effexor XR] 225 mg PO DAILY 03/18/17 [History] buPROPion HCl [Wellbutrin Xl] 150 mg PO DAILY 03/18/17 [History] Metoprolol Succinate 25 mg PO DAILY 11/06/18 [History] risperiDONE [RisperiDAL] 0.5 tab PO BEDTIME PRN 11/06/18 [History] Past Medical History - Past Health History Medical/Surgical History: Denies Medical/Surgical History HEENT History: Reports: Impaired Vision, Sinusitis, Other (See Below) Other HEENT History: wears glasses Cardiovascular History: Reports: Hypertension Respiratory History: Reports: None Gastrointestinal History: Reports: None Genitourinary History: Reports: None 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: Musculoskeletal History: Reports: Osteoarthritis Neurological History: Reports: None Psychiatric History: Reports: Anxiety, Depression Endocrine/Metabolic History: Reports: Obesity/BMI 30+ Hematologic History: Reports: None Immunologic History: Reports: None Oncologic (Cancer) History: Reports: None Dermatologic History: Reports: None - Infectious Disease History Infectious Disease History: Reports: Chicken Pox - Past Surgical History Head Surgeries/Procedures: Reports: None HEENT Surgical History: Reports: Adenoidectomy, Myringotomy w Tube(s), Naso- Sinus Surgery, Tonsillectomy Cardiovascular Surgical History: Reports: None Respiratory Surgical History: Reports: None GI Surgical History: Reports: Cholecystectomy Female Surgical History: Reports: Tubal Ligation Endocrine Surgical History: Reports: None Neurological Surgical History: Reports: None Musculoskeletal Surgical History: Reports: None Oncologic Surgical History: Reports: None Dermatological Surgical History: Reports: None Social & Family History - Family History Family Medical History: Noncontributory - Caffeine Use Caffeine Use: Reports: Coffee ED ROS GENERAL - Review of Systems Review Of Systems: ROS reveals no pertinent complaints other than HPI. ED EXAM, GENERAL - Physical Exam Exam: See Below (See dictation) Course - Orders/Labs/Meds Orders: Active Orders 24 hr Category Date Time Status CHLAMYDIA AND GONORRHEA BY TMA Stat Lab 05/29/19 12:50 Received CULTURE URINE [RM] Stat Lab 05/29/19 12:50 Received Labs: Laboratory Tests 05/29/19 05/29/19 Range/Units 12:50 12:50 Urine Color YELLOW Urine Appearance CLEAR Urine pH 7.5 (5.0-8.0) Ur Specific [place] 1.015 (1.001-1.035) Urine Protein NEGATIVE (NEGATIVE) mg/dL Urine Glucose (UA) NEGATIVE (NEGATIVE) mg/dL Urine Ketones NEGATIVE (NEGATIVE) mg/dL Urine Occult Blood NEGATIVE (NEGATIVE) Urine Nitrite NEGATIVE (NEGATIVE) Urine Bilirubin NEGATIVE (NEGATIVE) Urine Urobilinogen 0.2 (<2.0) EU/dL Ur Leukocyte Esterase TRACE H (NEGATIVE) Urine RBC 0-1 (0-2/HPF) Urine WBC 0-1 (0-5/HPF) Ur Epithelial Cells OCCASIONAL (NONE-FEW) Amorphous Sediment RARE (NEGATIVE) Urine Bacteria RARE (NEGATIVE) Urine Mucus RARE (NONE-MOD) Ana species DNA POSITIVE H (NEGATIVE) Gardnerella DNA Probe POSITIVE H (NEGATIVE) Trichomonas DNA Probe NEGATIVE (NEGATIVE) Departure - Departure Time of Disposition: 14:06 Disposition: Home, Self-Care 01 Clinical Impression: Bacterial vaginosis, Candidiasis - Discharge Information Instructions: Bacterial Vaginosis, [id number] Referrals: PCP,None [Primary Care Provider] - Forms: ED Department Discharge Additional Instructions: The following information is given to patients seen in the emergency department who are being discharged to home. This information is to outline your options for follow-up care. We provide all patients seen in our emergency department with a follow-up referral. The need for follow-up, as well as the timing and circumstances, are variable depending upon the specifics of your emergency department visit. If you don't have a primary care physician on staff, we will provide you with a referral. We always advise you to contact your personal physician following an emergency department visit to inform them of the circumstance of the visit and for follow-up with them and/or the need for any referrals to a consulting specialist. The emergency department will also refer you to a specialist when appropriate. This referral assures that you have the opportunity for follow-up care with a specialist. All of these measure are taken in an effort to provide you with optimal care, which includes your follow-up. Under all circumstances we always encourage you to contact your private physician who remains a resource for coordinating your care. When calling for follow-up care, please make the office aware that this follow-up is from your recent emergency room visit. If for any reason you are refused follow-up, please contact the [facility] Department at and asked to speak to the emergency department charge nurse. [facility] [address] [place] [phone] [address] 1. Gonorrhea and Chlamydia tests are send-outs, these results will not be available for 4-5 days. We call if these results are positive. Avoid any form of alcohol and please refrain from sex while taking the medications for your BV. 2. Follow up with Dr Park as we discussed. 3. Return to the ED as needed as discussed. - My Orders Last 24 Hours: My Active Orders 05/29/19 12:50 CHLAMYDIA AND GONORRHEA BY TMA Stat CULTURE URINE [RM] Stat - Assessment/Plan Last 24 Hours: My Active Orders 05/29/19 12:50 CHLAMYDIA AND GONORRHEA BY TMA Stat CULTURE URINE [RM] Stat
[2019-05-29 16:35] VITALS: BP 151/98; PULSE 63
== END 2019-05-29 14:15 | disposition home or self-care (01) ==
LOC: MW.ED 12:35
DX: N76.0 Acute vaginitis (principal); B96.89 Other specified bacterial agents as the cause of diseases classified elsewhere; B37.3 Candidiasis of vulva and vagina; I10 Essential (primary) hypertension; E66.9 Obesity, unspecified; F32.9 Major depressive disorder, single episode, unspecified; F41.9 Anxiety disorder, unspecified; Z79.899 Other long term (current) drug therapy
CPT/HCPCS: 81001; 87086; 87480; 87491; 87510; 87591; 87660; 99283

== ENCOUNTER 2019-06-11 11:08 | Emergency (ER) | payer BC ==
--- NOTE | 2019-06-11 11:32 | EDM.PDOC ---
ED HPI GENERAL MEDICAL PROBLEM - General Chief Complaint: Genitourinary Problem Stated Complaint: BLADDER INFECTION Time Seen by Provider: 06/11/19 11:19 Source of Information: Reports: Patient History Limitations: Reports: No Limitations - History of Present Illness INITIAL COMMENTS - FREE TEXT/NARRATIVE: HISTORY AND PHYSICAL: History of present illness: Patient is a 48-year-old female who presents to the emergency room with complaints of bladder fullness, frequency and vaginal irritation. Patient was seen in the ER on 05/29/2019 for BV and candidiasis, was prescribed Diflucan and Flagyl. (05/29/19: UA, gonorrhea and Chlamydia screenings were negative). She states she successfully completed these medications. She feels like she either has a UTI or that she didn't get rid of her BV completely. She has seen Dr Park; but hasn't seen him in several months. Patient denies any fever, chills, headache, change in vision, syncope or near syncope. Denies any chest pain, back pain, shortness of breath or cough. Denies any abdominal pain, nausea, vomiting, diarrhea, constipation. Has not noted any blood in urine or stool. Patient has been eating and drinking appropriately. Review of systems: As per history of present illness and below otherwise all systems reviewed and negative. Past medical history: As per history of present illness and as reviewed below otherwise noncontributory. Surgical history: As per history of present illness and as reviewed below otherwise noncontributory. Social history: See social history for further information Family history: As per history of present illness and as reviewed below otherwise noncontributory. Physical exam: General: well-developed and well nourished 48-year-old female. Alert and oriented. Nontoxic appearing and in no acute distress. HEENT: Atraumatic, normocephalic, pupils equal and reactive bilaterally, negative for conjunctival pallor or scleral icterus, mucous membranes moist, trachea midline. No drooling or trismus noted. No meningeal signs. No hot potato voice noted. Lungs: Clear to auscultation, breath sounds equal bilaterally, chest nontender. Heart: S1S2, regular rate and rhythm without overt murmur Abdomen: Soft, nondistended, nontender. Negative for masses or hepatosplenomegaly. Negative for costovertebral tenderness. Pelvis: Stable nontender. Skin: Intact, warm, dry. No lesions or rashes noted. Extremities: Atraumatic, moves all extremities per self without difficulty or deficits, negative for cords or calf pain. Neurovascular unremarkable. Neuro: Awake, alert, oriented. Cranial nerves II through XII unremarkable. Cerebellum unremarkable. Motor and sensory unremarkable throughout. Exam nonfocal. Notes: The urinalysis shows no significant findings. I will add a urine culture. Due to her frequent history of bacterial vaginosis and candidiasis and will treat this with the Flagyl gel as she had previously been using the oral medications. We discussed the need for follow-up care with an CONTENT STRATEGIST as this is in ongoing problem for several months. Supportive care measures were reviewed and discussed. Voices understanding and is agreeable to plan of care. Denies any further questions or concerns at this time. Diagnostics: UA Therapeutics: None Prescription: Flagyl Gel x 7 days Diflucan Impression: History of BV Dysuria Plan: 1. Increase your oral fluids. Use the Flagyl suppository during the evening; avoid any sexual intercourse during treatment. You will need to see your OBGYN for re-evaluation of this. Establish care and follow up with an OBGYN for your frequent reoccurring UTI/BV concerns. May need several months of medication if this doesn't resolve. 2. Return to the ED as needed and as discussed. Definitive disposition and diagnosis as appropriate pending reevaluation and review of above. - Related Data Allergies Allergy/AdvReac Type Severity Reaction Status Date / Time No Known Allergies Allergy Verified 05/29/19 16:28 Home Meds: Home Meds Hydrochlorothiazide 25 mg PO DAILY 03/18/17 [History] Losartan [Cozaar] 100 mg PO DAILY 03/18/17 [History] Venlafaxine [Effexor XR] 225 mg PO DAILY 03/18/17 [History] buPROPion HCl [Wellbutrin Xl] 150 mg PO DAILY 03/18/17 [History] Metoprolol Succinate 25 mg PO DAILY 11/06/18 [History] risperiDONE [RisperiDAL] 0.5 tab PO BEDTIME PRN 11/06/18 [History] Past Medical History - Past Health History Medical/Surgical History: Denies Medical/Surgical History HEENT History: Reports: Impaired Vision, Sinusitis, Other (See Below) Other HEENT History: wears glasses Cardiovascular History: Reports: Hypertension Respiratory History: Reports: None Gastrointestinal History: Reports: None Genitourinary History: Reports: None CONTENT STRATEGIST History: Reports: Musculoskeletal History: Reports: Osteoarthritis Neurological History: Reports: None Psychiatric History: Reports: Anxiety, Depression Endocrine/Metabolic History: Reports: Obesity/BMI 30+ Hematologic History: Reports: None Immunologic History: Reports: None Oncologic (Cancer) History: Reports: None Dermatologic History: Reports: None - Infectious Disease History Infectious Disease History: Reports: Chicken Pox - Past Surgical History Head Surgeries/Procedures: Reports: None HEENT Surgical History: Reports: Adenoidectomy, Myringotomy w Tube(s), Naso- Sinus Surgery, Tonsillectomy Cardiovascular Surgical History: Reports: None Respiratory Surgical History: Reports: None GI Surgical History: Reports: Cholecystectomy Female Surgical History: Reports: Tubal Ligation Endocrine Surgical History: Reports: None Neurological Surgical History: Reports: None Musculoskeletal Surgical History: Reports: None Oncologic Surgical History: Reports: None Dermatological Surgical History: Reports: None Social & Family History - Family History Family Medical History: Noncontributory - Caffeine Use Caffeine Use: Reports: Coffee ED ROS GENERAL - Review of Systems Review Of Systems: ROS reveals no pertinent complaints other than HPI. ED EXAM, RENAL/ - Physical Exam Exam: See Below (See dication) Course - Vital Signs Last Recorded V/S: Last Vital Signs Temp 95.8 F 06/11/19 11:40 Pulse 68 06/11/19 11:40 Resp 16 06/11/19 11:40 BP 149/77 H 06/11/19 11:40 Pulse Ox 95 06/11/19 11:40 - Orders/Labs/Meds Labs: Laboratory Tests 06/11/19 Range/Units 11:30 Urine Color YELLOW Urine Appearance CLEAR Urine pH 6.0 (5.0-8.0) Ur Specific [place] 1.020 (1.001-1.035) Urine Protein NEGATIVE (NEGATIVE) mg/dL Urine Glucose (UA) NEGATIVE (NEGATIVE) mg/dL Urine Ketones NEGATIVE (NEGATIVE) mg/dL Urine Occult Blood NEGATIVE (NEGATIVE) Urine Nitrite NEGATIVE (NEGATIVE) Urine Bilirubin NEGATIVE (NEGATIVE) Urine Urobilinogen 0.2 (<2.0) EU/dL Ur Leukocyte Esterase NEGATIVE (NEGATIVE) Departure - Departure Time of Disposition: 12:18 Disposition: Home, Self-Care 01 Clinical Impression: Dysuria - Discharge Information Instructions: Dysuria Referrals: Jay Park MD [Primary Care Provider] - Forms: ED Department Discharge Additional Instructions: The following information is given to patients seen in the emergency department who are being discharged to home. This information is to outline your options for follow-up care. We provide all patients seen in our emergency department with a follow-up referral. The need for follow-up, as well as the timing and circumstances, are variable depending upon the specifics of your emergency department visit. If you don't have a primary care physician on staff, we will provide you with a referral. We always advise you to contact your personal physician following an emergency department visit to inform them of the circumstance of the visit and for follow-up with them and/or the need for any referrals to a consulting specialist. The emergency department will also refer you to a specialist when appropriate. This referral assures that you have the opportunity for follow-up care with a specialist. All of these measure are taken in an effort to provide you with optimal care, which includes your follow-up. Under all circumstances we always encourage you to contact your private physician who remains a resource for coordinating your care. When calling for follow-up care, please make the office aware that this follow-up is from your recent emergency room visit. If for any reason you are refused follow-up, please contact the [facility] Emergency Department at and asked to speak to the emergency department charge nurse. [facility] [address] [place] [id number] [facility] [address] [place] [id number] 1. Increase your oral fluids. Use the Flagyl suppository during the evening; avoid any sexual intercourse during treatment. You will need to see your OBGYN for re-evaluation of this. Establish care and follow up with an OBGYN for your frequent reoccurring UTI/BV concerns. May need several months of medication if this doesn't resolve. 2. Return to the ED as needed and as discussed.
[2019-06-11 13:21] VITALS: BP 127/80; PULSE 66
== END 2019-06-11 13:23 | disposition home or self-care (01) ==
LOC: MW.ED 11:08
DX: R30.0 Dysuria (principal); I10 Essential (primary) hypertension; E66.9 Obesity, unspecified; F32.9 Major depressive disorder, single episode, unspecified; F41.9 Anxiety disorder, unspecified; Z68.35 Body mass index [BMI] 35.0-35.9, adult; Z79.899 Other long term (current) drug therapy; Z87.42 Personal history of other diseases of the female genital tract
CPT/HCPCS: 81003; 99283

== ENCOUNTER 2020-09-15 19:01 | Emergency (ER) | payer MEDICAID ==
[2020-09-15] MEDS ORDERED: Sodium Chloride 0.9% 2.5 ML Syringe FLUSH PRN (19:23)
[2020-09-15] MEDS ORDERED: Sodium Chloride 0.9% 10 ML Syringe FLUSH PRN (19:23)
[2020-09-15] MEDS ORDERED: Sodium Chloride 0.9% 1,000 ML IV ONE (19:23)
--- NOTE | 2020-09-15 19:56 | EDM.PDOC ---
ED HPI GENERAL MEDICAL PROBLEM - General Chief Complaint: General Stated Complaint: HIGH BLOOD PRESSURE Time Seen by Provider: 09/15/20 19:12 Source of Information: Reports: Patient History Limitations: Reports: No Limitations - History of Present Illness INITIAL COMMENTS - FREE TEXT/NARRATIVE: 49-year-old female with history of hypertension and anxiety presents her hypertension over the past 3 days. Yesterday her blood pressure was 189/99. She feels tingling sensation in bilateral fingers since 5 PM today, she felt nauseous and anxious, short of breath, blurry vision, dizzy, nonbloody diarrhea. She then called her PCP and was instructed to come to the ER for assessment by the nurse. She denies headache, chest pain, abdominal pain, vomiting, focal weakness. ROS: A 10-point review of systems, other than pertinent positives and negatives as stated per HPI, is otherwise negative Past medical history: No additional pertinent history Past Surgical history: No additional pertinent history Social history: No additional pertinent history Family history: No additional pertinent history PHYSICAL EXAM General: AOx4, GCS = 15, No distress HEENT: dry mucous membrane Neck: supple, no meningismus, no Kernig or Brudzinski Cardiac: S1S2 RRR Respiratory: CTAB, no crackles or rales, no wheezing Abdomen: Soft, nontender, no rebound or guarding, nondistended, no pulsatile mass. Back: nontender Musculoskeletal: NVI distally, no deformity Neuro: No focal deficits, CN 2 - 12 WNL. - Related Data Allergies Allergy/AdvReac Type Severity Reaction Status Date / Time No Known Allergies Allergy Verified 09/15/20 19:14 Home Meds: Home Meds Hydrochlorothiazide 25 mg PO DAILY 03/18/17 [History] Losartan [Cozaar] 100 mg PO DAILY 03/18/17 [History] Venlafaxine [Effexor XR] 225 mg PO DAILY 03/18/17 [History] buPROPion HCL [Wellbutrin Xl] 150 mg PO DAILY 03/18/17 [History] Metoprolol Succinate 25 mg PO DAILY 11/06/18 [History] risperiDONE [RisperiDAL] 0.5 tab PO BEDTIME PRN 11/06/18 [History] Past Medical History - Past Health History Medical/Surgical History: Denies Medical/Surgical History HEENT History: Reports: Impaired Vision, Sinusitis, Other (See Below) Other HEENT History: wears glasses Cardiovascular History: Reports: Hypertension Respiratory History: Reports: None Gastrointestinal History: Reports: None Genitourinary History: Reports: None WELLNESS COORDINATOR History: 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: Musculoskeletal History: Reports: Osteoarthritis Neurological History: Reports: None Psychiatric History: Reports: Anxiety, Depression Endocrine/Metabolic History: Reports: Obesity/BMI 30+ Insulin Pump Model and Lead Systems Architect: None Hematologic History: Reports: None Immunologic History: Reports: None Oncologic (Cancer) History: Reports: None Dermatologic History: Reports: None - Infectious Disease History Infectious Disease History: Reports: Chicken Pox - Past Surgical History Head Surgeries/Procedures: Reports: None HEENT Surgical History: Reports: Adenoidectomy, Myringotomy w Tube(s), Naso- Sinus Surgery, Tonsillectomy Cardiovascular Surgical History: Reports: None Respiratory Surgical History: Reports: None GI Surgical History: Reports: Cholecystectomy Female Surgical History: Reports: Tubal Ligation Endocrine Surgical History: Reports: None Neurological Surgical History: Reports: None Musculoskeletal Surgical History: Reports: None Oncologic Surgical History: Reports: None Dermatological Surgical History: Reports: None Social & Family History - Family History Family Medical History: No Pertinent Family History - Caffeine Use Caffeine Use: Reports: Coffee - Recreational Drug Use Recreational Drug Use: No ED ROS GENERAL - Review of Systems Review Of Systems: See Below (see dictation) ED EXAM, GENERAL - Physical Exam Exam: See Below (see dictation) #1 Interpretation EKG Interpretation Comments: Heart rate = 53 bpm, normal sinus rhythm, normal QRS interval, no STEMI. EKG and rhythm strip interpreted by me at 1937 Course - Vital Signs Last Recorded V/S: Last Vital Signs Temp 96.7 F L 09/15/20 19:10 Pulse 55 L 09/15/20 20:15 Resp 18 09/15/20 20:15 BP 149/70 H 09/15/20 20:15 Pulse Ox 97 09/15/20 20:15 - Orders/Labs/Meds Orders: Active Orders 24 hr Category Date Time Status Cardiac Monitoring [RC] . DIRECTED Care 09/15/20 19:23 Active EKG Documentation Completion [RC] STAT Care 09/15/20 19:24 Active Pulse Oximetry [RC] ASDIRECTED Care 09/15/20 19:23 Active Sodium Chloride 0.9% [Saline Flush] Med 09/15/20 19:23 Active 10 ml FLUSH ASDIRECTED PRN Sodium Chloride 0.9% [Saline Flush] Med 09/15/20 19:23 Active 2.5 ml FLUSH ASDIRECTED PRN cloNIDine [Catapres] Med 09/15/20 21:00 Once 0.1 mg PO ONETIME ONE Saline Lock Insert [OM.PC] Stat Oth 09/15/20 19:23 Ordered Medication Orders Clonidine HCl (Catapres) 0.1 mg PO ONETIME ONE Stop: 09/15/20 21:01 Sodium Chloride (Saline Flush) 10 ml FLUSH ASDIRECTED PRN PRN Reason: Keep Vein Open Last Admin: 09/15/20 19:52 Dose: 10 ml Documented by: NIKOLE Sodium Chloride (Saline Flush) 2.5 ml FLUSH ASDIRECTED PRN PRN Reason: Keep Vein Open Last Admin: 09/15/20 19:52 Dose: 2.5 ml Documented by: NIKOLE Labs: Laboratory Tests 09/15/20 09/15/20 Range/Units 19:40 19:40 WBC 6.94 (4.0-11.0) K/uL RBC 5.19 (4.30-5.90) M/uL Hgb 14.5 (12.0-16.0) g/dL Hct 43.9 (36.0-46.0) % MCV 84.6 (80.0-98.0) fL MCH 27.9 (27.0-32.0) pg MCHC 33.0 (31.0-37.0) g/dL RDW Std Deviation 41.5 (28.0-62.0) fl RDW Coeff of Tiffany 14 (11.0-15.0) % Plt Count 322 (150-400) K/uL MPV 12.40 H (7.40-12.00) fL Neut % (Auto) 43.5 L (48.0-80.0) % Lymph % (Auto) 45.5 H (16.0-40.0) % Mills % (Auto) 8.4 (0.0-15.0) % Eos % (Auto) 2.3 (0.0-7.0) % Baso % (Auto) 0.3 (0.0-1.5) % Neut # (Auto) 3.0 (1.4-5.7) K/uL Lymph # (Auto) 3.2 H (0.6-2.4) K/uL Mills # (Auto) 0.6 (0.0-0.8) K/uL Eos # (Auto) 0.2 (0.0-0.7) K/uL Baso # (Auto) 0.0 (0.0-0.1) K/uL Nucleated RBC % 0.0 /100WBC Nucleated RBCs # 0 K/uL Sodium 140 (136-145) mmol/L Potassium 3.8 (3.5-5.1) mmol/L Chloride 103 (98-107) mmol/L Carbon Dioxide 29.4 (21.0-32.0) mmol/L BUN 21 H (7.0-18.0) mg/dL Creatinine 1.1 H (0.6-1.0) mg/dL Est Cr Clr Drug Dosing TNP Estimated GFR (MDRD) 52.4 ml/min Glucose 110 H (74-106) mg/dL Calcium 9.2 (8.5-10.1) mg/dL Phosphorus 4.6 (2.6-4.7) mg/dL Magnesium 2.1 (1.8-2.4) mg/dL Total Bilirubin 0.4 (0.2-1.0) mg/dL AST 18 (15-37) IU/L ALT 28 (14-63) IU/L Alkaline Phosphatase 77 (46-116) U/L Troponin I < 0.050 (0.000-0.056) ng/mL Total Protein 7.4 (6.4-8.2) g/dL Albumin 3.6 (3.4-5.0) g/dL Globulin 3.8 (2.6-4.0) g/dL Albumin/Globulin Ratio 0.9 (0.9-1.6) Meds: Medications Generic Name Dose Route Start Last Admin Trade Name Freq PRN Reason Stop Dose Admin Clonidine HCl 0.1 mg 09/15/20 21:00 Catapres PO 09/15/20 21:01 ONETIME ONE Sodium Chloride 10 ml 09/15/20 19:23 09/15/20 19:52 Saline Flush FLUSH 10 ml ASDIRECTED PRN Administration Keep Vein Open Sodium Chloride 2.5 ml 09/15/20 19:23 09/15/20 19:52 Saline Flush FLUSH 2.5 ml ASDIRECTED PRN Administration Keep Vein Open Discontinued Medications Generic Name Dose Route Start Last Admin Trade Name Freq PRN Reason Stop Dose Admin Sodium Chloride 1,000 mls @ 999 mls/hr 09/15/20 19:23 09/15/20 19:52 Normal Saline IV 09/15/20 20:23 999 mls/hr .Bolus ONE Administration - Re-Assessments/Exams Free Text/Narrative Re-Assessment/Exam: 09/15/20 2130 After IVF and clonidine 0.1mg PO in the ER, she feels better and is currently stable for discharge. I performed a repeat exam and did not appreciate new abnormal findings. Patient exhibits normal vital signs and has a normal gait on road test. I advised the patient to return to the ER for reevaluation if symptoms worsened, including fever, worsening pain, or any other worrisome symptoms. I instructed the patient to follow up with their PCP within 2-3 days. MEDICAL DECISION MAKING: I reviewed the patients past medical records, lab and radiographic findings. I discussed the case with the patient. My differential diagnosis included: HTN, hypertensive encephalopathy, ACS. CT head did not reveal any intracranial process, EKG and troponin were unremarkable, I do not suspect atypical chest pain. Her renal function is unremarkable, I do not suspect renal compromise from her high blood pressure. Her electrolytes are unremarkable. I instructed her to follow-up with her PCP within 2 to 3 days for medication adjustment. Departure - Departure Time of Disposition: 21:01 Disposition: Home, Self-Care 01 Condition: Good Clinical Impression: Hypertension - Discharge Information *PRESCRIPTION DRUG MONITORING PROGRAM REVIEWED*: Not Applicable *COPY OF PRESCRIPTION DRUG MONITORING REPORT IN PATIENT CANDY: Not Applicable Instructions: Hypertension, Adult, [id number], Preventing Hypertension Referrals: Ana Pardo PA [Primary Care Provider] - 3 Days Forms: ED Department Discharge Additional Instructions: The need for follow-up, as well as the timing and circumstances, are variable depending upon the specifics of your emergency department visit. If you don't have a primary care physician on staff, we will provide you with a referral. We always advise you to contact your personal physician following an emergency department visit to inform them of the circumstance of the visit and for follow-up with them and/or the need for any referrals to a consulting specialist. The emergency department will also refer you to a specialist when appropriate. This referral assures that you have the opportunity for follow-up care with a specialist. All of these measure are taken in an effort to provide you with optimal care, which includes your follow-up. Under all circumstances we always encourage you to contact your private physician who remains a resource for coordinating your care. When calling for follow-up care, please make the office aware that this follow-up is from your recent emergency room visit. If for any reason you are refused follow-up, please contact the [facility] Emergency Department at and asked to speak to the emergency department charge nurse. If you do not have a primary care doctor, please follow up with the clinics below within 3-[address] [facility] - Primary Care [address] [place] [id number] [id number] Sepsis Event Note (ED) - Evaluation Sepsis Screening Result: No Definite Risk - Focused Exam Vital Signs: Vital Signs Temp Pulse Resp BP Pulse Ox 09/15/20 20:15 55 L 18 149/70 H 97 09/15/20 19:10 96.7 F L 60 18 162/93 H 97 - My Orders Last 24 Hours: My Active Orders 09/15/20 19:23 Cardiac Monitoring [RC] . DIRECTED Pulse Oximetry [RC] ASDIRECTED Sodium Chloride 0.9% [Saline Flush] 10 ml FLUSH ASDIRECTED PRN Sodium Chloride 0.9% [Saline Flush] 2.5 ml FLUSH ASDIRECTED PRN Saline Lock Insert [OM.PC] Stat 09/15/20 19:24 EKG Documentation Completion [RC] STAT 09/15/20 21:00 cloNIDine [Catapres] 0.1 mg PO ONETIME ONE - Assessment/Plan Last 24 Hours: My Active Orders 09/15/20 19:23 Cardiac Monitoring [RC] . DIRECTED Pulse Oximetry [RC] ASDIRECTED Sodium Chloride 0.9% [Saline Flush] 10 ml FLUSH ASDIRECTED PRN Sodium Chloride 0.9% [Saline Flush] 2.5 ml FLUSH ASDIRECTED PRN Saline Lock Insert [OM.PC] Stat 09/15/20 19:24 EKG Documentation Completion [RC] STAT 09/15/20 21:00 cloNIDine [Catapres] 0.1 mg PO ONETIME ONE
--- NOTE | 2020-09-15 20:07 | CR ---
HISTORY: Shortness of breath COMPARISON: 07/08/2018 FINDINGS: A portable erect AP view of the chest was obtained at 1948 hours. The lungs remain clear. No focal or diffuse infiltrates are present. The heart has decreased in size and is now normal in size. The mediastinum is normal in appearance. The osseous structures are normal in appearance for the patient`s age. IMPRESSION: Normal portable chest single view. Heart size decreased, now normal in size. Dictated by Jonathan Mcqueen MD @ Sep 15 2020 8:05PM Signed by Dr. Jonathan Mcqueen @ Sep 15 2020 8:06PM
[2020-09-15 20:21] LABS: BLOOD UREA NITROGEN,BUN 21 mg/dL (7.0-18.0); CARBON DIOXIDE,CO2 29.4 mmol/L (21.0-32.0); CHLORIDE,CL 103 mmol/L (98-107); GLUCOSE RANDOM 110 mg/dL (74-106); POTASSIUM,K 3.8 mmol/L (3.5-5.1); SODIUM,NA 140 mmol/L (136-145)
--- NOTE | 2020-09-15 20:22 | CT ---
INDICATION: Bilateral hand sensation TECHNIQUE: CT Head without i.v. contrast. COMPARISON: None FINDINGS: CSF space: The ventricles are normal for age. Brain: No evidence of mass, acute infarction or hemorrhage is seen. No mass-effect or midline shift is seen. The brain parenchyma is otherwise normal in appearance with preservation of the wise-white matter junction. Calvarium: The visualized paranasal sinuses are well aerated. The mastoid air cells are clear. The visualized orbits are grossly unremarkable. The calvarium is unremarkable in appearance with no fractures identified. IMPRESSION: 1. No evidence of acute infarction, intracranial hemorrhage, or mass-effect seen. Please note that all CT scans at this facility use dose modulation, iterative reconstruction, and/or weight-based dosing when appropriate to reduce radiation dose to as low as reasonably achievable. Dictated by: Gurjit Connell MD @ 09/15/2020 20:19:50 (Electronically Signed)
[2020-09-15] MEDS ORDERED: cloNIDine 0.1 MG Tab PO ONE (21:00)
[2020-09-15] MEDS ORDERED: cloNIDine 0.1 MG Tab ONE (21:51)
[2020-09-15 21:55] VITALS: BP 154/82; PULSE 60
[2020-09-16] MEDS ORDERED: cloNIDine 0.1 MG Tab PO ONE (21:47)
== END 2020-09-15 21:55 | disposition home or self-care (01) ==
LOC: MW.ED 19:01
DX: I10 Essential (primary) hypertension (principal); E66.9 Obesity, unspecified; Z79.899 Other long term (current) drug therapy
CPT/HCPCS: 36415; 70450; 71045; 80053; 83735; 84100; 84484; 85025; 93005; 99285; A9270; J7030; 93010; 99284

== ENCOUNTER 2020-10-22 17:14 | Emergency (ER) | payer MEDICAID ==
--- NOTE | 2020-10-22 18:29 | EDM.PDOC ---
ED HPI GENERAL MEDICAL PROBLEM - General Chief Complaint: ENT Problem Stated Complaint: SORE THROAT Time Seen by Provider: 10/22/20 17:14 Source of Information: Reports: Patient History Limitations: Reports: No Limitations - History of Present Illness INITIAL COMMENTS - FREE TEXT/NARRATIVE: HISTORY AND PHYSICAL: History of present illness: Patient is a 49-year-old female presented to the ED with complaints of a sore throat and cough x2 days. Patient states that 2 days ago she began feeling a tickle in the back of her throat that is slowly progressed to a sore throat cough, and bilateral ear pain. Patient states that that she frequently gets ear infections and her current symptoms feel similar to those she is experienced in the past. Denies any known ill contacts and denies receiving a flu shot this year. She states that she has not taken anything [id number] to alleviate her symptoms. Denies any other symptoms or concerns. Patient denies fever, chills, chest pain, shortness of breath, or cough. Denies headache, neck stiff ness, change in vision, syncope, or near syncope. Denies nausea, vomiting, abdominal pain, diarrhea, constipation, or dysuria. Has not noted any blood in urine or stool. Patient has been eating and drinking appropriately. Review of systems: As per history of present illness and below otherwise all systems reviewed and negative. Past medical history: As per history of present illness and as reviewed below otherwise noncontributory. Surgical history: As per history of present illness and as reviewed below otherwise noncontr ibutory. Social history: See social history for further information Family history: As per history of present illness and as reviewed below otherwise noncontributory. Physical exam: General: Patient is alert, oriented, and in no acute distress. Patient sitting comfortably on exam table. Vitals stable and reviewed by me. HEENT: Atraumatic, normocephalic, pupils equal and reactive bilaterally, negative for conjunctival pallor or scleral icterus, mucous membranes moist, throat is erythematous without exudate, uvula midline, tonsils equal, neck supple, nontender, trachea midline. No drooling or trismus noted. No meningeal signs. No hot potato voice noted. No mastoid tenderness. Lungs: Clear to auscultation, breath sounds equal bilaterally, chest nontender. Heart: S1S2, regular rate and rhythm without overt murmur Abdomen: Soft, nondistended, nontender. Negative for masses or hepatosplenomegaly. Negative for costovertebral tenderness. Pelvis: Stable nontender. Genitourinary: Deferred. Rectal: Deferred. Skin: Intact, warm, dry. No lesions or rashes noted. Extremities: Atraumatic, negative for cords or calf pain. Neurovascular unremarkable. Neuro: Awake, alert, oriented. Cranial nerves II through XII unremarkable. Cerebellum unremarkable. Motor and sensory unremarkable throughout. Exam nonfocal. Notes: Signs and symptoms that were prompt return to the ED thoroughly discussed with patient. Discussed importance for follow-up with a primary care provider. Voices understanding and is agreeable to plan of care. Denies any further questions or concerns at this time. Diagnostics: Strep, Covid, flu Therapeutics: None Prescription: Amoxicillin Impression: Strep Pharyngitis Plan: 1. Use cough drops and/or other over the counter medications as needed for throat discomfort as discussed. Drink small but frequent sips of fluid to prevent dehydration. 2. Alternate Ibuprofen and Tylenol as directed for pain and discomfort. Medication as prescribed. 3. Follow up with your primary care provider as discussed. 4. Return to the ED as needed and as discussed. Definitive disposition and diagnosis as appropriate pending reevaluation and review of above. ears, throat Pain Score (Numeric/FACES): 6 - Related Data Allergies Allergy/AdvReac Type Severity Reaction Status Date / Time No Known Allergies Allergy Verified 10/22/20 17:44 Home Meds: Home Meds Hydrochlorothiazide 25 mg PO DAILY 03/18/17 [History] Losartan [Cozaar] 100 mg PO DAILY 03/18/17 [History] Venlafaxine [Effexor XR] 225 mg PO DAILY 03/18/17 [History] buPROPion HCL [Wellbutrin Xl] 150 mg PO DAILY 03/18/17 [History] Metoprolol Succinate 25 mg PO DAILY 11/06/18 [History] risperiDONE [RisperiDAL] 0.5 tab PO BEDTIME PRN 11/06/18 [History] Amoxicillin 500 mg PO BID 10 Days #20 tablet 10/22/20 [Rx] Past Medical History - Past Health History Medical/Surgical History: Denies Medical/Surgical History HEENT History: Reports: Impaired Vision, Sinusitis, Other (See Below) Other HEENT History: wears glasses Cardiovascular History: Reports: Hypertension Respiratory History: Reports: None Gastrointestinal History: Reports: None Genitourinary History: Reports: None 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: Musculoskeletal History: Reports: Osteoarthritis Neurological History: Reports: None Psychiatric History: Reports: Anxiety, Depression Endocrine/Metabolic History: Reports: Obesity/BMI 30+ 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 Hematologic History: Reports: None Immunologic History: Reports: None Oncologic (Cancer) History: Reports: None Dermatologic History: Reports: None - Infectious Disease History Infectious Disease History: Reports: Chicken Pox - Past Surgical History Head Surgeries/Procedures: Reports: None HEENT Surgical History: Reports: Adenoidectomy, Myringotomy w Tube(s), Naso- Sinus Surgery, Tonsillectomy Cardiovascular Surgical History: Reports: None Respiratory Surgical History: Reports: None GI Surgical History: Reports: Cholecystectomy Female Surgical History: Reports: Tubal Ligation Endocrine Surgical History: Reports: None Neurological Surgical History: Reports: None Musculoskeletal Surgical History: Reports: None Oncologic Surgical History: Reports: None Dermatological Surgical History: Reports: None Social & Family History - Family History Family Medical History: No Pertinent Family History - Tobacco Use Tobacco Use Status *Q: Never Tobacco User - Caffeine Use Caffeine Use: Reports: Coffee - Recreational Drug Use Recreational Drug Use: No ED ROS GENERAL - Review of Systems Review Of Systems: Comprehensive ROS is negative, except as noted in HPI. ED EXAM, GENERAL - Physical Exam Exam: See Below (see dictation) Course - Vital Signs Last Recorded V/S: Last Vital Signs Temp 97 F 10/22/20 17:41 Pulse 58 L 10/22/20 18:30 Resp 18 10/22/20 18:30 BP 143/83 H 10/22/20 18:30 Pulse Ox 98 10/22/20 18:30 - Orders/Labs/Meds Labs: Laboratory Tests 10/22/20 10/22/20 Range/Units 18:01 18:01 Influenza Type A RNA NEGATIVE (NEGATIVE) Influenza Type B RNA NEGATIVE (NEGATIVE) SARS-CoV-2 RNA (TYE) NEGATIVE (NEGATIVE) Group A Strep (PCR) DETECTED H (NOT DETECT) Departure - Departure Time of Disposition: 19:08 Disposition: Home, Self-Care 01 Clinical Impression: Strep pharyngitis - Discharge Information Prescriptions: Amoxicillin 500 mg PO BID 10 Days #20 tablet Instructions: Sore Throat, Qina-lo-Solt Referrals: Ezekiel Burrows [Primary Care Provider] - Forms: ED Department Discharge Additional Instructions: The following information is given to patients seen in the emergency department who are being discharged to home. This information is to outline your options for follow-up care. We provide all patients seen in our emergency department with a follow-up referral. The need for follow-up, as well as the timing and circumstances, are variable depending upon the specifics of your emergency department visit. If you don't have a primary care physician on staff, we will provide you with a referral. We always advise you to contact your personal physician following an emergency department visit to inform them of the circumstance of the visit and for follow-up with them and/or the need for any referrals to a consulting specialist. The emergency department will also refer you to a specialist when appropriate. This referral assures that you have the opportunity for follow-up care with a specialist. All of these measure are taken in an effort to provide you with optimal care, which includes your follow-up. Under all circumstances we always encourage you to contact your private physician who remains a resource for coordinating your care. When calling for follow-up care, please make the office aware that this follow-up is from your recent emergency room visit. If for any reason you are refused follow-up, please contact the [facility] Emergency Department at and asked to speak to the emergency department charge nurse. [facility] [address] [place] [address] [place] [address] 1. Use cough drops and/or other over the counter medications as needed for throat discomfort as discussed. Drink small but frequent sips of fluid to prevent dehydration. 2. Alternate Ibuprofen and Tylenol as directed for pain and discomfort. Medication as prescribed. 3. Follow up with your primary care provider as discussed. 4. Return to the ED as needed and as discussed. Sepsis Event Note (ED) - Evaluation Sepsis Screening Result: No Definite Risk - Focused Exam Vital Signs: Vital Signs Temp Pulse Resp BP Pulse Ox 10/22/20 18:30 58 L 18 143/83 H 98 10/22/20 17:41 97 F 56 L 16 151/78 H 99
[2020-10-22 18:53] LABS: CORONAVIRUS COVID-19 NAA NEGATIVE (NEGATIVE); INFLUENZA A NAA NEGATIVE (NEGATIVE); INFLUENZA B NAA NEGATIVE (NEGATIVE)
[2020-10-23 03:04] VITALS: BP 156/90; PULSE 60
== END 2020-10-22 19:16 | disposition home or self-care (01) ==
LOC: MW.ED 17:14
DX: J02.0 Streptococcal pharyngitis (principal); I10 Essential (primary) hypertension; E66.9 Obesity, unspecified; Z68.35 Body mass index [BMI] 35.0-35.9, adult; Z20.822 Contact with and (suspected) exposure to COVID-19; Z79.899 Other long term (current) drug therapy
CPT/HCPCS: 0240U; 87651; 99283

== ENCOUNTER 2020-12-07 15:15 | Emergency (ER) | payer MEDICAID ==
[2020-12-07] MEDS ORDERED: Losartan 50 MG Tab PO ONE (16:13)
[2020-12-07] MEDS ORDERED: Hydrochlorothiazide 25 MG Tab PO ONE (16:14)
--- NOTE | 2020-12-07 16:34 | PCM.EKG ---
#1 Interpretation EKG Date: 12/07/20 Time: 16:33 EKG Interpretation Comments: Sinus rhythm rate of 71 right axis deviation but otherwise unremarkable no acute ischemia QTC 470
--- NOTE | 2020-12-07 16:51 | CR ---
Indication: Hypertension. Technique: AP portable view of the chest. Comparison: September 15, 2020 Findings: The heart is normal in size. The lungs are clear. No infiltrate, pleural effusion, or pneumothorax is identified. Impression: No acute cardiopulmonary process Dictated by Saumya Bustamante MD @ 12/07/2020 4:50:[address] Saumya Bustamante @ Dec 07 2020 4:50PM
[2020-12-07 16:53] LABS: BLOOD UREA NITROGEN,BUN 11 mg/dL (7.0-18.0); CARBON DIOXIDE,CO2 26.7 mmol/L (21.0-32.0); CHLORIDE,CL 101 mmol/L (98-107); GLUCOSE RANDOM 103 mg/dL (74-106); POTASSIUM,K 3.6 mmol/L (3.5-5.1); SODIUM,NA 137 mmol/L (136-145)
--- NOTE | 2020-12-07 18:09 | EDM.PDOC ---
ED HPI GENERAL MEDICAL PROBLEM - General Chief Complaint: Genitourinary Problem Stated Complaint: UNKNOWN DISCHARGE Time Seen by Provider: 12/07/20 15:16 Source of Information: Reports: Patient History Limitations: Reports: No Limitations - History of Present Illness INITIAL COMMENTS - FREE TEXT/NARRATIVE: HISTORY AND PHYSICAL: History of present illness: Patient is a 50-year-old female who presents emergency room today with concern of increase in vaginal discharge and a fishy odor of her vagina over the past several days. Patient states she is concerned of a sexually transmitted infection as she feels that her partner is not faithful to her. Patient states that she has not had intercourse with any other partners but she states that she feels like her partner may not be faithful. Patient states that she is supposed to be on blood pressure medication but has not taken today's dose of her medications as she "forgot to ". Patient denies any other symptoms or concerns. Patient denies fever, chills, chest pain, shortness of breath, or cough. Denies headache, neck stiff ness, change in vision, syncope, or near syncope. Denies nausea, vomiting, abdominal pain, diarrhea, constipation, or dysuria. Has not noted any blood in urine or stool. Patient has been eating and drinking appropriately. Review of systems: As per history of present illness and below otherwise all systems reviewed and negative. Past medical history: As per history of present illness and as reviewed below otherwise noncontributory. Surgical history: As per history of present illness and as reviewed below otherwise noncontributory. Social history: See social history for further information Family history: As per history of present illness and as reviewed below otherwise noncont ributory. Physical exam: General: Patient is alert, oriented, and in no acute distress. Patient sitting comfortably on exam table. [id number] on exam otherwise vitals stable and reviewed by me. HEENT: Atraumatic, normocephalic, pupils equal and reactive bilaterally, negative for conjunctival pallor or scleral icterus, mucous membranes moist, TMs normal bilaterally, throat clear, neck supple, nontender, trachea midline. No drooling or trismus noted. No meningeal signs. No hot potato voice noted. Lungs: Clear to auscultation, breath sounds equal bilaterally, chest nontender. Heart: S1S2, regular rate and rhythm without overt murmur Abdomen: Soft, nondistended, nontender. Negative for masses or hepatosplenomegaly. Negative for costovertebral tenderness. Pelvis: Stable nontender. Genitourinary: Shopper Marketing Manager at bedside Mera Banks RN. External genitalia is grossly unremarkable. There is a moderate amount of white clumpy vaginal discharge in the vaginal vault. Cervix is surgically absent. No suprapubic/adnexal tenderness. Rectal: Deferred. Skin: Intact, warm, dry. No lesions or rashes noted. Extremities: Atraumatic, negative for cords or calf pain. Neurovascular unremarkable. Neuro: Awake, alert, oriented. Cranial nerves II through XII unremarkable. Cerebellum unremarkable. Motor and sensory unremarkable throughout. Exam nonfocal. Notes: Upon arrival to the ED, patient is alert, nontoxic appearing, and well on exam. She is hypertensive 190s over 200s over 100 but states that she did not take her home dose of her blood pressure medications today as she forgot to. Patient does have a moderate amount of white clumpy vaginal discharge in the vaginal vault. Affirm and gonorrhea and chlamydia swabs obtained at the time of genitourinary exam. Will obtain cardiac workup today due to elevated blood pressure and give patient her home dose of medications today that she had missed. Lab work today is unremarkable. Affirm is positive for bacterial vaginosis. Gonorrhea and chlamydia swab pending. Upon reevaluation of patient, she has improvement of her blood pressures which is now 160s-170s/90s dixie comfortable and vitally stable on exam. Discussed with patient that she needs to take her blood pressure medications as prescribed to her daily. Discussed importance for follow-up with her primary care provider in a woman's health provider. Strict return precautions thoroughly discussed with patient. Voices understanding and is agreeable to plan of care. Denies any further questions or concerns at this time. Diagnostics: CBC, CMP, UA, Uhcg, Affirm, G&C, Trop, cXR Therapeutics: hctz, losartan (Patients home medication that she did not take today) Prescription: Metrogel Impression: Bacterial vaginosis Hypertension Plan: 1. Apply medication as prescribed. Follow up with a women health provider / primary care provider as discussed. Return to the ED as needed and as discussed. 2. If you desire full STD screening, you can get this done with your primary care provider/once health care provider or at the [facility] [place] [facility] as discussed. Definitive disposition and diagnosis as appropriate pending reevaluation and review of above. Pelvic Pain Score (Numeric/FACES): 4 - Related Data Allergies Allergy/AdvReac Type Severity Reaction Status Date / Time No Known Allergies Allergy Verified 12/07/20 15:56 Home Meds: Home Meds Hydrochlorothiazide 25 mg PO DAILY 03/18/17 [History] Losartan [Cozaar] 100 mg PO DAILY 03/18/17 [History] Venlafaxine [Effexor XR] 225 mg PO DAILY 03/18/17 [History] buPROPion HCL [Wellbutrin Xl] 150 mg PO DAILY 03/18/17 [History] Metoprolol Succinate 25 mg PO DAILY 11/06/18 [History] risperiDONE [RisperiDAL] 0.5 tab PO BEDTIME PRN 11/06/18 [History] metroNIDAZOLE [Metrogel-Vaginal] 1 applic VG BEDTIME 5 Days #5 gel.w.appl 12/07/20 [Rx] Past Medical History - Past Health History Medical/Surgical History: Denies Medical/Surgical History HEENT History: Reports: Impaired Vision, Sinusitis, Other (See Below) Other HEENT History: wears glasses Cardiovascular History: Reports: Hypertension Respiratory History: Reports: None Gastrointestinal History: Reports: None Genitourinary History: Reports: None 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: Musculoskeletal History: Reports: Osteoarthritis Neurological History: Reports: None Psychiatric History: Reports: Anxiety, Depression Endocrine/Metabolic History: Reports: Obesity/BMI 30+ Insulin Pump Model and Public Speaking Instructor: None Hematologic History: Reports: None Immunologic History: Reports: None Oncologic (Cancer) History: Reports: None Dermatologic History: Reports: None - Infectious Disease History Infectious Disease History: Reports: Chicken Pox - Past Surgical History Head Surgeries/Procedures: Reports: None HEENT Surgical History: Reports: Adenoidectomy, Myringotomy w Tube(s), Naso- Sinus Surgery, Tonsillectomy Cardiovascular Surgical History: Reports: None Respiratory Surgical History: Reports: None GI Surgical History: Reports: Cholecystectomy Female Surgical History: Reports: Tubal Ligation Endocrine Surgical History: Reports: None Neurological Surgical History: Reports: None Musculoskeletal Surgical History: Reports: None Oncologic Surgical History: Reports: None Dermatological Surgical History: Reports: None Social & Family History - Family History Family Medical History: No Pertinent Family History - Caffeine Use Caffeine Use: Reports: Coffee - Alcohol Use Number of Drinks Per Day: 4 - Recreational Drug Use Recreational Drug Use: No ED ROS GENERAL - Review of Systems Review Of Systems: Comprehensive ROS is negative, except as noted in HPI. ED EXAM, GENERAL - Physical Exam Exam: See Below (see dictation) Course - Vital Signs Last Recorded V/S: Last Vital Signs Temp 97.5 F 12/07/20 15:45 Pulse 71 12/07/20 17:15 Resp 16 12/07/20 17:15 BP 181/97 H 12/07/20 17:15 Pulse Ox 96 12/07/20 17:15 - Orders/Labs/Meds Orders: Active Orders 24 hr Category Date Time Status EKG Documentation Completion [RC] STAT Care 12/07/20 16:13 Active CHLAMYDIA AND GONORRHEA BY TMA Stat Lab 12/07/20 16:10 Received CULTURE URINE [RM] Stat Lab 12/07/20 15:50 Received Labs: Laboratory Tests 12/07/20 12/07/20 12/07/20 Range/Units 15:50 15:50 16:10 WBC (4.0-11.0) K/uL RBC (4.30-5.90) M/uL Hgb (12.0-16.0) g/dL Hct (36.0-46.0) % MCV (80.0-98.0) fL MCH (27.0-32.0) pg MCHC (31.0-37.0) g/dL RDW Std Deviation (28.0-62.0) fl RDW Coeff of Tiffany (11.0-15.0) % Plt Count (150-400) K/uL MPV (7.40-12.00) fL Neut % (Auto) (48.0-80.0) % Lymph % (Auto) (16.0-40.0) % [place] % (Auto) (0.0-15.0) % Eos % (Auto) (0.0-7.0) % Baso % (Auto) (0.0-1.5) % Neut # (Auto) (1.4-5.7) K/uL Lymph # (Auto) (0.6-2.4) K/uL [place] # (Auto) (0.0-0.8) K/uL Eos # (Auto) (0.0-0.7) K/uL Baso # (Auto) (0.0-0.1) K/uL Nucleated RBC % /100WBC Nucleated RBCs # K/uL Sodium (136-145) mmol/L Potassium (3.5-5.1) mmol/L Chloride (98-107) mmol/L Carbon Dioxide (21.0-32.0) mmol/L BUN (7.0-18.0) mg/dL Creatinine (0.6-1.0) mg/dL Est Cr Clr Drug Dosing mL/min Estimated GFR (MDRD) ml/min Glucose (74-106) mg/dL Calcium (8.5-10.1) mg/dL Total Bilirubin (0.2-1.0) mg/dL AST (15-37) IU/L ALT (14-63) IU/L Alkaline Phosphatase (46-116) U/L Troponin I (0.000-0.056) ng/mL Total Protein (6.4-8.2) g/dL Albumin (3.4-5.0) g/dL Globulin (2.6-4.0) g/dL Albumin/Globulin Ratio (0.9-1.6) Urine Color YELLOW Urine Appearance SLT CLOUDY Urine pH 5.5 (5.0-8.0) Ur Specific [place] 1.025 (1.001-1.035) Urine Protein NEGATIVE (NEGATIVE) mg/dL Urine Glucose (UA) NEGATIVE (NEGATIVE) mg/dL Urine Ketones NEGATIVE (NEGATIVE) mg/dL Urine Occult Blood NEGATIVE (NEGATIVE) Urine Nitrite POSITIVE H (NEGATIVE) Urine Bilirubin NEGATIVE (NEGATIVE) Urine Urobilinogen 0.2 (<2.0) EU/dL Ur Leukocyte Esterase NEGATIVE (NEGATIVE) Urine RBC 0-1 (0-2/HPF) Urine WBC 0-1 (0-5/HPF) Ur Epithelial Cells RARE (NONE-FEW) Urine Bacteria 1+ H (NEGATIVE) Urine HCG, Qual NEGATIVE (NEGATIVE) Ana species DNA NEGATIVE (NEGATIVE) Gardnerella DNA Probe POSITIVE H (NEGATIVE) Trichomonas DNA Probe NEGATIVE (NEGATIVE) 12/07/20 12/07/20 Range/Units 16:22 16:22 WBC 5.56 (4.0-11.0) K/uL RBC 5.09 (4.30-5.90) M/uL Hgb 14.0 (12.0-16.0) g/dL Hct 42.7 (36.0-46.0) % MCV 83.9 (80.0-98.0) fL MCH 27.5 (27.0-32.0) pg MCHC 32.8 (31.0-37.0) g/dL RDW Std Deviation 42.9 (28.0-62.0) fl RDW Coeff of Tiffany 14 (11.0-15.0) % Plt Count 245 (150-400) K/uL MPV 11.80 (7.40-12.00) fL Neut % (Auto) 45.1 L (48.0-80.0) % Lymph % (Auto) 45.1 H (16.0-40.0) % [place] % (Auto) 6.8 (0.0-15.0) % Eos % (Auto) 2.3 (0.0-7.0) % Baso % (Auto) 0.7 (0.0-1.5) % Neut # (Auto) 2.5 (1.4-5.7) K/uL Lymph # (Auto) 2.5 H (0.6-2.4) K/uL [place] # (Auto) 0.4 (0.0-0.8) K/uL Eos # (Auto) 0.1 (0.0-0.7) K/uL Baso # (Auto) 0.0 (0.0-0.1) K/uL Nucleated RBC % 0.0 /100WBC Nucleated RBCs # 0 K/uL Sodium 137 (136-145) mmol/L Potassium 3.6 (3.5-5.1) mmol/L Chloride 101 (98-107) mmol/L Carbon Dioxide 26.7 (21.0-32.0) mmol/L BUN 11 (7.0-18.0) mg/dL Creatinine 1.0 (0.6-1.0) mg/dL Est Cr Clr Drug Dosing 56.83 mL/min Estimated GFR (MDRD) 58.2 ml/min Glucose 103 (74-106) mg/dL Calcium 8.9 (8.5-10.1) mg/dL Total Bilirubin 0.4 (0.2-1.0) mg/dL AST 25 (15-37) IU/L ALT 27 (14-63) IU/L Alkaline Phosphatase 82 (46-116) U/L Troponin I < 0.050 (0.000-0.056) ng/mL Total Protein 7.6 (6.4-8.2) g/dL Albumin 3.6 (3.4-5.0) g/dL Globulin 4.0 (2.6-4.0) g/dL Albumin/Globulin Ratio 0.9 (0.9-1.6) Urine Color Urine Appearance Urine pH (5.0-8.0) Ur Specific [place] (1.001-1.035) Urine Protein (NEGATIVE) mg/dL Urine Glucose (UA) (NEGATIVE) mg/dL Urine Ketones (NEGATIVE) mg/dL Urine Occult Blood (NEGATIVE) Urine Nitrite (NEGATIVE) Urine Bilirubin (NEGATIVE) Urine Urobilinogen (<2.0) EU/dL Ur Leukocyte Esterase (NEGATIVE) Urine RBC (0-2/HPF) Urine WBC (0-5/HPF) Ur Epithelial Cells (NONE-FEW) Urine Bacteria (NEGATIVE) Urine HCG, Qual (NEGATIVE) Ana species DNA (NEGATIVE) Gardnerella DNA Probe (NEGATIVE) Trichomonas DNA Probe (NEGATIVE) Meds: Medications Discontinued Medications Generic Name Dose Route Start Last Admin Trade Name Freq PRN Reason Stop Dose Admin Hydrochlorothiazide 25 mg 12/07/20 16:14 12/07/20 16:42 Hydrochlorothiazide 25 Mg Tab PO 12/07/20 16:15 25 mg ONETIME ONE Administration Losartan Potassium 100 mg 12/07/20 16:13 12/07/20 16:46 Losartan 50 Mg Tab PO 12/07/20 16:14 100 mg ONETIME ONE Administration Departure - Departure Time of Disposition: 18:07 Disposition: Home, Self-Care 01 Clinical Impression: Bacterial vaginosis Hypertension Qualifiers: Hypertension type: unspecified Qualified Code(s): I10 - Essential (primary) hypertension - Discharge Information Prescriptions: metroNIDAZOLE [Metrogel-Vaginal] 1 applic VG BEDTIME 5 Days #5 gel.w.appl Instructions: Bacterial Vaginosis, [id number], Hypertension, Adult, [id number] Referrals: Ana Pardo PA [Primary Care Provider] - Forms: ED Department Discharge Additional Instructions: The following information is given to patients seen in the emergency department who are being discharged to home. This information is to outline your options for follow-up care. We provide all patients seen in our emergency department with a follow-up referral. The need for follow-up, as well as the timing and circumstances, are variable depending upon the specifics of your emergency department visit. If you don't have a primary care physician on staff, we will provide you with a referral. We always advise you to contact your personal physician following an emergency department visit to inform them of the circumstance of the visit and for follow-up with them and/or the need for any referrals to a consulting specialist. The emergency department will also refer you to a specialist when appropriate. This referral assures that you have the opportunity for follow-up care with a specialist. All of these measure are taken in an effort to provide you with optimal care, which includes your follow-up. Under all circumstances we always encourage you to contact your private physician who remains a resource for coordinating your care. When calling for follow-up care, please make the office aware that this follow-up is from your recent emergency room visit. If for any reason you are refused follow-up, please contact the Emergency Department at and asked to speak to the emergency department charge nurse. Primary Care [address] [place] [id number] [facility] [address] [place] [address] [id number] [facility] [address] [place] [address] [facility] [address] [place] [address] 1. Apply medication as prescribed. Follow up with a women health provider / primary care provider as discussed. Return to the ED as needed and as discussed. 2. If you desire full STD screening, you can get this done with your primary care provider/[facility] health care provider or at the [facility] as discussed. Sepsis Event Note (ED) - Evaluation Sepsis Screening Result: No Definite Risk - Focused Exam Vital Signs: Vital Signs Temp Pulse Resp BP BP Pulse Ox 12/07/20 17:15 71 16 181/97 H 96 12/07/20 16:46 186/100 H 12/07/20 16:45 73 17 186/100 H 98 12/07/20 15:45 97.5 F 75 193/108 H 96 - My Orders Last 24 Hours: My Active Orders 12/07/20 15:50 CULTURE URINE [RM] Stat 12/07/20 16:10 CHLAMYDIA AND GONORRHEA BY TMA Stat 12/07/20 16:13 EKG Documentation Completion [RC] STAT - Assessment/Plan Last 24 Hours: My Active Orders 12/07/20 15:50 CULTURE URINE [RM] Stat 12/07/20 16:10 CHLAMYDIA AND GONORRHEA BY TMA Stat 12/07/20 16:13 EKG Documentation Completion [RC] STAT
[2020-12-07 19:39] VITALS: BP 166/96; PULSE 68
[2020-12-09 13:03] LABS: C.TRACHOMATIS BY TMA Negative (Negative); N.GONORRHOEAE BY TMA Negative (Negative)
== END 2020-12-07 18:15 | disposition home or self-care (01) ==
LOC: MW.ED 15:15
DX: N89.8 Other specified noninflammatory disorders of vagina (principal); I10 Essential (primary) hypertension; E66.9 Obesity, unspecified; Z68.35 Body mass index [BMI] 35.0-35.9, adult; Z79.899 Other long term (current) drug therapy
CPT/HCPCS: 36415; 71045; 71045-26; 80053; 81001; 81003; 81025; 84484; 85025; 87086; 87088; 87186; 87480; 87491; 87510; 87591; 87660; 93005; 99283; 99284-25; A9270-GY

== ENCOUNTER 2021-03-09 15:18 | Emergency (ER) | payer MEDICAID ==
[2021-03-09] MEDS ORDERED: Phenazopyridine 200 MG Tab PO ONE (17:54)
--- NOTE | 2021-03-09 17:56 | EDM.PDOC ---
ED HPI GENERAL MEDICAL PROBLEM - General Chief Complaint: Genitourinary Problem Stated Complaint: BLADDER PAIN Time Seen by Provider: 03/09/21 15:23 Source of Information: Reports: Patient History Limitations: Reports: No Limitations - History of Present Illness INITIAL COMMENTS - FREE TEXT/NARRATIVE: HISTORY AND PHYSICAL: History of present illness: Patient is a 50-year-old female who presents emergency room today with concern of possible bladder infection as she has been having urinary frequency, burning with urination over the past 5 to 7 days. Patient states she has an appointment with her primary care provider in 1 week but states that she felt like she could not wait this long as her symptoms were getting worse with each day. Patient denies any flank pain or any other associated symptoms. Patient denies fever, chills, chest pain, shortness of breath, or cough. Denies headache, neck stiff ness, change in vision, syncope, or near syncope. Denies nausea, vomiting, abdominal pain, diarrhea, constipation. Has not noted any blood in urine or stool. Patient has been eating and drinking appropriately. Review of systems: As per history of present illness and below otherwise all systems reviewed and negative. Past medical history: As per history of present illness and as reviewed below otherwise noncontributory. Surgical history: As per history of present illness and as reviewed below otherwise noncontributory. Social history: See social history for further information Family history: As per history of present illness and as reviewed below otherwise noncontributory. Physical exam: General: Patient is alert, oriented, and in no acute distress. Patient sitting comfortably on exam table. Vitals stable and reviewed by me. HEENT: Atraumatic, normocephalic, pupils equal and reactive bilaterally, negative for conjunctival pallor or scleral icterus, mucous membranes moist, TMs normal bilaterally, throat clear, neck supple, nontender, trachea midline. No drooling or trismus noted. No meningeal signs. No hot potato voice noted. Lungs: Clear to auscultation, breath sounds equal bilaterally, chest nontender. Heart: S1S2, regular rate and rhythm without overt murmur Abdomen: Soft, nondistended, nontender. Negative for masses or hepatosplenomegaly. Negative for costovertebral tenderness. Pelvis: Stable nontender. Genitourinary: Deferred. Rectal: Deferred. Skin: Intact, warm, dry. No lesions or rashes noted. Extremities: Atraumatic, negative for cords or calf pain. Neurovascular unremarkable. Neuro: Awake, alert, oriented. Cranial nerves II through XII unremarkable. Cerebellum unremarkable. Motor and sensory unremarkable throughout. Exam nonfocal. Notes: Sinus symptoms that were prompt return to the ED thoroughly discussed with dennys ent. Discussed importance for follow-up with her primary care provider. Voices understanding and is agreeable to plan of care. Denies any further questions or concerns at this time. Diagnostics: UA, urine hCG, urine culture Therapeutics: Pyridium Prescription: Keflex, Pyridium Impression: Urinary tract infection Plan: 1. Take medication as prescribed. You can also alternate ibuprofen and Tylenol as directed for pain and discomfort. 2. Follow-up with a primary care provider as discussed. Return to the ED as needed and as discussed. Definitive disposition and diagnosis as appropriate pending reevaluation and review of above. Mid-Anterior Bladder Pain Score (Numeric/FACES): 8 - Related Data Allergies Allergy/AdvReac Type Severity Reaction Status Date / Time No Known Allergies Allergy Verified 03/09/21 17:16 Home Meds: Home Meds Hydrochlorothiazide 25 mg PO DAILY 03/18/17 [History] Losartan [Cozaar] 100 mg PO DAILY 03/18/17 [History] Venlafaxine [Effexor XR] 225 mg PO DAILY 03/18/17 [History] buPROPion HCL [Wellbutrin Xl] 150 mg PO DAILY 03/18/17 [History] Metoprolol Succinate 25 mg PO DAILY 11/06/18 [History] risperiDONE [RisperiDAL] 0.5 tab PO BEDTIME PRN 11/06/18 [History] metroNIDAZOLE [Metrogel-Vaginal] 1 applic VG BEDTIME 5 Days #5 gel.w.appl 12/07/20 [Rx] Phenazopyridine HCl [Pyridium] 200 mg PO TID 2 Days #6 tablet 03/09/21 [Rx] cephALEXin [Keflex] 500 mg PO Q8H 7 Days #21 cap 03/09/21 [Rx] Past Medical History - Past Health History Medical/Surgical History: Denies Medical/Surgical History HEENT History: Reports: Impaired Vision, Sinusitis, Other (See Below) Other HEENT History: wears glasses Cardiovascular History: Reports: Hypertension Respiratory History: Reports: None Gastrointestinal History: Reports: None Genitourinary History: Reports: None 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: Musculoskeletal History: Reports: Osteoarthritis Neurological History: Reports: None Psychiatric History: Reports: Anxiety, Depression Endocrine/Metabolic History: Reports: Obesity/BMI 30+ 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 Hematologic History: Reports: None Immunologic History: Reports: None Oncologic (Cancer) History: Reports: None Dermatologic History: Reports: None - Infectious Disease History Infectious Disease History: Reports: Chicken Pox - Past Surgical History Head Surgeries/Procedures: Reports: None HEENT Surgical History: Reports: Adenoidectomy, Myringotomy w Tube(s), Naso- Sinus Surgery, Tonsillectomy Cardiovascular Surgical History: Reports: None Respiratory Surgical History: Reports: None GI Surgical History: Reports: Cholecystectomy Female Surgical History: Reports: Tubal Ligation Endocrine Surgical History: Reports: None Neurological Surgical History: Reports: None Musculoskeletal Surgical History: Reports: None Oncologic Surgical History: Reports: None Dermatological Surgical History: Reports: None Social & Family History - Family History Family Medical History: No Pertinent Family History - Caffeine Use Caffeine Use: Reports: Coffee ED ROS GENERAL - Review of Systems Review Of Systems: Comprehensive ROS is negative, except as noted in HPI. ED EXAM, GENERAL - Physical Exam Exam: See Below (See dictation) Course - Vital Signs Last Recorded V/S: Last Vital Signs Temp 97.0 F 03/09/21 17:11 Pulse 54 L 03/09/21 18:02 Resp 18 03/09/21 17:11 BP 161/93 H 03/09/21 18:02 Pulse Ox 98 03/09/21 18:02 - Orders/Labs/Meds Orders: Active Orders 24 hr Category Date Time Status CULTURE URINE [MREF] Stat Lab 03/09/21 17:30 Received Labs: Laboratory Tests 03/09/21 03/09/21 Range/Units 17:30 17:30 Urine Color YELLOW Urine Appearance SLT CLOUDY Urine pH 5.5 (5.0-8.0) Ur Specific [place] >= 1.030 (1.001-1.035) Urine Protein NEGATIVE (NEGATIVE) mg/dL Urine Glucose (UA) NEGATIVE (NEGATIVE) mg/dL Urine Ketones TRACE H (NEGATIVE) mg/dL Urine Occult Blood NEGATIVE (NEGATIVE) Urine Nitrite NEGATIVE (NEGATIVE) Urine Bilirubin NEGATIVE (NEGATIVE) Urine Urobilinogen 0.2 (<2.0) EU/dL Ur Leukocyte Esterase MODERATE H (NEGATIVE) Urine RBC 0-2 (0-2/HPF) Urine WBC 6-10 (0-5/HPF) Ur Epithelial Cells FEW (NONE-FEW) Urine Bacteria FEW (NEGATIVE) Urine Mucus LIGHT (NONE-MOD) Urine HCG, Qual NEGATIVE (NEGATIVE) Meds: Medications Discontinued Medications Generic Name Dose Route Start Last Admin Trade Name Freq PRN Reason Stop Dose Admin Phenazopyridine HCl 200 mg 03/09/21 17:54 03/09/21 18:02 Phenazopyridine 200 Mg Tab PO 03/09/21 17:55 200 mg ONETIME ONE Administration Departure - Departure Time of Disposition: 17:55 Disposition: Home, Self-Care 01 Clinical Impression: Urinary tract infection Qualifiers: Urinary tract infection type: acute cystitis Hematuria presence: without hematuria Qualified Code(s): N30.00 - Acute cystitis without hematuria - Discharge Information Prescriptions: cephALEXin [Keflex] 500 mg PO Q8H 7 Days #21 cap Phenazopyridine HCl [Pyridium] 200 mg PO TID 2 Days #6 tablet Referrals: Ana Pardo PA [Primary Care Provider] - Forms: ED Department Discharge Additional Instructions: The following information is given to patients seen in the emergency department who are being discharged to home. This information is to outline your options for follow-up care. We provide all patients seen in our emergency department with a follow-up referral. The need for follow-up, as well as the timing and circumstances, are variable depending upon the specifics of your emergency department visit. If you don't have a primary care physician on staff, we will provide you with a referral. We always advise you to contact your personal physician following an emergency department visit to inform them of the circumstance of the visit and for follow-up with them and/or the need for any referrals to a consulting specialist. The emergency department will also refer you to a specialist when appropriate. This referral assures that you have the opportunity for follow-up care with a specialist. All of these measure are taken in an effort to provide you with optimal care, which includes your follow-up. Under all circumstances we always encourage you to contact your private physician who remains a resource for coordinating your care. When calling for follow-up care, please make the office aware that this follow-up is from your recent emergency room visit. If for any reason you are refused follow-up, please contact the [facility] Emergency Department at and asked to speak to the emergency department charge nurse. [facility] [address] [place] [address] [facility] [address] [place] [id number] 1. Take medication as prescribed. You can also alternate ibuprofen and Tylenol as directed for pain and discomfort. 2. Follow-up with a primary care provider as discussed. Return to the ED as needed and as discussed. Sepsis Event Note (ED) - Evaluation Sepsis Screening Result: No Definite Risk - Focused Exam Vital Signs: Vital Signs Temp Pulse Resp BP Pulse Ox 03/09/21 18:02 54 L 161/93 H 98 03/09/21 17:11 97.0 F 97 18 172/82 H 97 - My Orders Last 24 Hours: My Active Orders 03/09/21 17:30 CULTURE URINE [MREF] Stat - Assessment/Plan Last 24 Hours: My Active Orders 03/09/21 17:30 CULTURE URINE [MREF] Stat
[2021-03-09 18:04] VITALS: BP 161/93; PULSE 54
== END 2021-03-09 18:06 | disposition home or self-care (01) ==
LOC: MW.ED 15:18
DX: N30.00 Acute cystitis without hematuria (principal); I10 Essential (primary) hypertension; M19.90 Unspecified osteoarthritis, unspecified site; E66.9 Obesity, unspecified; Z68.34 Body mass index [BMI] 34.0-34.9, adult; Z79.899 Other long term (current) drug therapy
CPT/HCPCS: 81001; 81025; 87086; 99283; A9270; 87088; 87186

== ENCOUNTER 2021-08-25 19:05 | Emergency (ER) | payer MEDICAID | END 2021-08-25 19:39 | disposition left against medical advice (07) | LOC: MW.ED 19:05 | DX: Z53.21 Procedure and treatment not carried out due to patient leaving prior to being seen by health care provider (principal) ==

== ENCOUNTER 2021-08-26 12:47 | Emergency (ER) | payer MEDICAID ==
[2021-08-26 15:09] VITALS: BP 164/89; PULSE 55
== END 2021-08-26 15:09 | disposition home or self-care (01) ==
LOC: MW.ED 12:47
DX: U07.1 COVID-19 (principal); I10 Essential (primary) hypertension; E11.9 Type 2 diabetes mellitus without complications; E66.9 Obesity, unspecified; Z79.899 Other long term (current) drug therapy; Z68.36 Body mass index [BMI] 36.0-36.9, adult; Z79.84 Long term (current) use of oral hypoglycemic drugs
CPT/HCPCS: 87804; 99284; U0002

== ENCOUNTER 2021-10-22 11:32 | Emergency (ER) | payer MEDICAID ==
[2021-10-22] MEDS ORDERED: Sodium Chloride 0.9% 2.5 ML Syringe FLUSH PRN (12:02)
[2021-10-22] MEDS ORDERED: Sodium Chloride 0.9% 10 ML Syringe FLUSH PRN (12:02)
[2021-10-22 13:02] LABS: BLOOD UREA NITROGEN,BUN 13 mg/dL (7.0-18.0); CARBON DIOXIDE,CO2 26.8 mmol/L (21.0-32.0); CHLORIDE,CL 100 mmol/L (98-107); ESTIMATED GFR > 60.0 ml/min; GLUCOSE RANDOM 103 mg/dL (74-106); POTASSIUM,K 3.4 mmol/L (3.5-5.1); SODIUM,NA 138 mmol/L (136-145)
[2021-10-22 14:14] VITALS: BP 142/94; PULSE 75
== END 2021-10-22 14:51 | disposition home or self-care (01) ==
LOC: MW.ED 11:32
DX: B34.9 Viral infection, unspecified (principal); I10 Essential (primary) hypertension; M19.90 Unspecified osteoarthritis, unspecified site; E66.9 Obesity, unspecified; Z68.36 Body mass index [BMI] 36.0-36.9, adult; Z79.899 Other long term (current) drug therapy; Z79.84 Long term (current) use of oral hypoglycemic drugs; Z86.16 Personal history of COVID-19
CPT/HCPCS: 36415; 71046; 71046-26; 80053; 84484; 84703; 85025; 85379; 87651-QW; 87804; 93005; 93010; 99283; 99284-25; J3490

== ENCOUNTER 2022-01-19 23:22 | Emergency (ER) | payer MEDICAID ==
[2022-01-19 23:40] VITALS: BP 175/94; PULSE 62
== END 2022-01-19 23:49 | disposition home or self-care (01) ==
LOC: MW.ED 23:22
DX: I10 Essential (primary) hypertension (principal); E66.9 Obesity, unspecified; E11.9 Type 2 diabetes mellitus without complications; Z68.32 Body mass index [BMI] 32.0-32.9, adult; Z79.899 Other long term (current) drug therapy; Z79.84 Long term (current) use of oral hypoglycemic drugs
CPT/HCPCS: 99283

== ENCOUNTER 2022-08-10 14:36 | Emergency (ER) | payer MEDICAID ==
[2022-08-10] MEDS ORDERED: Ketorolac 60 MG/2 ML SDV IM ONE (17:48)
[2022-08-10 19:15] LABS: CORONAVIRUS COVID-19 NAA NEGATIVE (NEGATIVE); INFLUENZA A NAA NEGATIVE (NEGATIVE); INFLUENZA B NAA NEGATIVE (NEGATIVE); RESPIRATORY SYNCYTIAL VIR NAA NEGATIVE (NEGATIVE)
[2022-08-10 19:55] VITALS: BP 132/67; PULSE 78
[2022-08-10 20:05] LABS: C. TRACHOMATIS BY PCR NOT DETECTED; N. GONORRHOEAE BY PCR NOT DETECTED
== END 2022-08-10 19:53 | disposition home or self-care (01) ==
LOC: MW.ED 14:36
DX: M25.552 Pain in left hip (principal); N76.0 Acute vaginitis; B96.89 Other specified bacterial agents as the cause of diseases classified elsewhere; H92.03 Otalgia, bilateral; G89.29 Other chronic pain; I10 Essential (primary) hypertension; E66.9 Obesity, unspecified; Z20.822 Contact with and (suspected) exposure to COVID-19; Z79.899 Other long term (current) drug therapy; Z86.16 Personal history of COVID-19; Z68.36 Body mass index [BMI] 36.0-36.9, adult
CPT/HCPCS: 0241U; 73502; 81003; 87480; 87491; 87510; 87591; 87651; 87660; 96372; 99283; J1885

== ENCOUNTER 2022-08-15 22:49 | Emergency (ER) | payer MEDICAID ==
[2022-08-15] MEDS ORDERED: amLODIPine 5 MG Tab PO ONE (23:03)
[2022-08-15 23:57] LABS: POTASSIUM,K 3.7 mmol/L (3.5-5.1)
[2022-08-16 00:41] VITALS: BP 188/120; PULSE 75
== END 2022-08-16 00:19 ==
LOC: MW.ED 22:49
DX: I10 Essential (primary) hypertension (principal); E66.9 Obesity, unspecified; Z68.37 Body mass index [BMI] 37.0-37.9, adult; Z79.899 Other long term (current) drug therapy; Z79.84 Long term (current) use of oral hypoglycemic drugs; Z86.16 Personal history of COVID-19; Z90.49 Acquired absence of other specified parts of digestive tract
CPT/HCPCS: 36415; 80053; 85025; 93005; 99283; A9270; 93010

== ENCOUNTER 2022-09-10 14:16 | Emergency (ER) | payer MEDICAID ==
[2022-09-10 15:03] VITALS: BP 146/76; PULSE 86
== END 2022-09-10 15:11 | disposition home or self-care (01) ==
LOC: MW.ED 14:16
DX: Z02.89 Encounter for other administrative examinations (principal); E11.9 Type 2 diabetes mellitus without complications; I10 Essential (primary) hypertension; E66.9 Obesity, unspecified; Z68.36 Body mass index [BMI] 36.0-36.9, adult; Z79.899 Other long term (current) drug therapy; Z79.84 Long term (current) use of oral hypoglycemic drugs; Z86.16 Personal history of COVID-19
CPT/HCPCS: 99283

== ENCOUNTER 2024-03-29 15:49 | Emergency (ER) | payer MEDICAID ==
[2024-03-29 16:15] VITALS: PULSE 70
[2024-03-29 16:36] LABS: BILIRUBIN,URINE NEGATIVE (NEGATIVE); COLOR,URINE YELLOW; GLUCOSE,URINE NEGATIVE (NEGATIVE); KETONES,URINE NEGATIVE (NEGATIVE); LEUKOCYTE ESTERASE,URINE TRACE (NEGATIVE); NITRITE,URINE NEGATIVE (NEGATIVE); OCCULT BLOOD,URINE NEGATIVE (NEGATIVE); PROTEIN,URINE NEGATIVE (NEGATIVE); UROBILINOGEN,URINE 0.2 EU/dL (<2.0)
[2024-03-29 16:40] LABS: APPEARANCE,URINE SLT CLOUDY
[2024-03-29 16:49] LABS: RBC,URINE 0-1 (0-2/HPF)
[2024-03-29 16:50] LABS: BACTERIA,URINE FEW (NEGATIVE); EPITHELIAL CELLS,URINE RARE (NONE-FEW); WBC,URINE 0-2 (0-5/HPF)
[2024-03-29] MEDS: Alum Hydro/Mag Hydro/Simeth XS 15 ML, Lidocaine 2% 5 ML PO STA (16:51)
[2024-03-29] MEDS: Ondansetron 4 MG Tab.DIS PO STA (17:13)
[2024-03-29 17:35] VITALS: BP 162/94
== END 2024-03-29 17:35 | disposition home or self-care (01) ==
LOC: MW.ED 15:49
DX: N30.00 Acute cystitis without hematuria (principal); L30.4 Erythema intertrigo; R12 Heartburn; R11.2 Nausea with vomiting, unspecified; I10 Essential (primary) hypertension; E11.9 Type 2 diabetes mellitus without complications; E66.9 Obesity, unspecified; Z79.899 Other long term (current) drug therapy; Z79.84 Long term (current) use of oral hypoglycemic drugs; Z75.8 Other problems related to medical facilities and other health care; Z68.38 Body mass index [BMI] 38.0-38.9, adult
CPT/HCPCS: 81001; 87086; 99283; A9270

== ENCOUNTER 2024-07-23 10:52 | Emergency (ER) | payer SELFPAY ==
[2024-07-23] MEDS: Ketorolac 30 MG/ML SDV IM ONE (13:26)
[2024-07-23 14:23] VITALS: BP 159/69; PULSE 71
== END 2024-07-23 14:11 | disposition home or self-care (01) ==
LOC: MW.ED 10:52
DX: I10 Essential (primary) hypertension (principal); M25.552 Pain in left hip; G89.29 Other chronic pain; E11.9 Type 2 diabetes mellitus without complications; E66.9 Obesity, unspecified; Z90.49 Acquired absence of other specified parts of digestive tract; Z90.710 Acquired absence of both cervix and uterus; Z79.51 Long term (current) use of inhaled steroids; Z79.84 Long term (current) use of oral hypoglycemic drugs; Z79.899 Other long term (current) drug therapy; Z68.34 Body mass index [BMI] 34.0-34.9, adult
CPT/HCPCS: 96372; 99283; J1885

== ENCOUNTER 2024-07-25 19:31 | Emergency (ER) | payer SELFPAY ==
[2024-07-25 20:35] VITALS: BP 164/87; PULSE 53
[2024-07-25] MEDS: Ketorolac 30 MG/ML SDV IM ONE (21:45)
== END 2024-07-25 22:10 ==
LOC: MW.ED 19:31
DX: Z02.89 Encounter for other administrative examinations (principal); Z76.0 Encounter for issue of repeat prescription; I10 Essential (primary) hypertension; E11.9 Type 2 diabetes mellitus without complications; E66.9 Obesity, unspecified; Z90.49 Acquired absence of other specified parts of digestive tract; Z90.710 Acquired absence of both cervix and uterus; Z79.51 Long term (current) use of inhaled steroids; Z79.84 Long term (current) use of oral hypoglycemic drugs; Z79.899 Other long term (current) drug therapy; Z68.38 Body mass index [BMI] 38.0-38.9, adult
CPT/HCPCS: 82947; 96372; 99283; J1885

== ENCOUNTER 2024-08-27 13:12 | Emergency (ER) | payer MEDICAID ==
[2024-08-27 13:24] VITALS: BP 160/90; PULSE 78
[2024-08-27 14:09] LABS: APPEARANCE,URINE CLEAR; BILIRUBIN,URINE NEGATIVE (NEGATIVE); COLOR,URINE YELLOW; GLUCOSE,URINE NEGATIVE (NEGATIVE); KETONES,URINE NEGATIVE (NEGATIVE); LEUKOCYTE ESTERASE,URINE NEGATIVE (NEGATIVE); NITRITE,URINE NEGATIVE (NEGATIVE); OCCULT BLOOD,URINE NEGATIVE (NEGATIVE); PROTEIN,URINE NEGATIVE (NEGATIVE); UROBILINOGEN,URINE 0.2 EU/dL (<2.0)
[2024-08-27] MEDS: Ketorolac 30 MG/ML SDV IM STA (14:11)
[2024-08-27] MEDS: Dexamethasone 4 MG Tab PO STA (15:10)
== END 2024-08-27 15:19 | disposition home or self-care (01) ==
LOC: MW.ED 13:12
DX: J18.9 Pneumonia, unspecified organism (principal); J02.9 Acute pharyngitis, unspecified; R82.998 Other abnormal findings in urine; I10 Essential (primary) hypertension; E11.9 Type 2 diabetes mellitus without complications; E66.9 Obesity, unspecified; Z90.710 Acquired absence of both cervix and uterus; Z79.899 Other long term (current) drug therapy; Z79.84 Long term (current) use of oral hypoglycemic drugs; Z75.8 Other problems related to medical facilities and other health care
CPT/HCPCS: 71046; 81003; 87428; 87651; 96372; 99285; J1885; J8540

== ENCOUNTER 2024-09-26 12:12 | Emergency (ER) | payer MEDICAID ==
[2024-09-26] MEDS ORDERED: Nitroglycerin 0.4 MG Tab.SL SL PRN (12:39)
[2024-09-26] MEDS: Sodium Chloride 0.9% 1,000 ML IV ONE (13:53)
[2024-09-26] MEDS: Ketorolac 30 MG/ML SDV IVPUSH ONE (13:56)
[2024-09-26 14:09] LABS: BASOPHILS ABSOLUTE AUTO 0.04 K/uL (0.00-0.20); BASOPHILS PERCENT AUTO 0.7 % (0.0-1.0); EOSINOPHILS ABSOLUTE AUTO 0.12 K/uL (0.00-0.45); EOSINOPHILS PERCENT AUTO 2.1 % (0.0-6.0); HEMATOCRIT 44.7 % (37.0-47.0); HEMOGLOBIN 14.3 g/dL (12.0-16.0); IMMATURE GRAN ABSOLUTE AUTO 0.01 K/uL (0.00-0.05); IMMATURE GRAN PERCENT AUTO 0.2 % (0.0-0.4); LYMPHOCYTES ABSOLUTE AUTO 2.08 K/uL (1.00-4.80); LYMPHOCYTES PERCENT AUTO 37.2 % (24.0-44.0); MEAN CORPUSCULAR VOLUME 81.1 fL (83.0-99.0); MEAN PLATELET VOLUME 11.5 fL (9.4-12.3); MONOCYTES ABSOLUTE AUTO 0.51 K/uL (0.00-0.80); MONOCYTES PERCENT AUTO 9.1 % (0.0-8.0); NEUTROPHILS ABSOLUTE AUTO 2.83 K/uL (1.80-7.70); NEUTROPHILS PERCENT AUTO 50.7 % (41.0-71.0); PLATELET COUNT,PLT 287 K/uL (150-400); RED BLOOD CELL COUNT 5.51 M/uL (4.10-5.30); WHITE BLOOD CELL COUNT,WBC 5.59 K/uL (3.9-11.3)
[2024-09-26 14:50] LABS: A/G RATIO 1.2 (0.9-1.6); BILIRUBIN TOTAL 0.3 mg/dL (0.2-1.0); CALCIUM 9.6 mg/dL (8.5-10.1); CARBON DIOXIDE,CO2 23.7 mmol/L (21.0-32.0); CREATININE 1.1 mg/dL (0.6-1.0); EST CRCL DRUG DOSING (CG) 47.8 mL/min; POTASSIUM,K 3.8 mmol/L (3.5-5.1); PROTEIN TOTAL,TP 7.4 g/dL (6.4-8.2)
[2024-09-26 15:07] LABS: BILIRUBIN,URINE NEGATIVE (NEGATIVE); COLOR,URINE YELLOW; GLUCOSE,URINE NEGATIVE (NEGATIVE); KETONES,URINE NEGATIVE (NEGATIVE); LEUKOCYTE ESTERASE,URINE NEGATIVE (NEGATIVE); NITRITE,URINE NEGATIVE (NEGATIVE); OCCULT BLOOD,URINE MODERATE (NEGATIVE); PH,URINE 6.5 (5.0-8.0); PROTEIN,URINE NEGATIVE (NEGATIVE); UROBILINOGEN,URINE 0.2 EU/dL (<2.0)
[2024-09-26 15:10] LABS: APPEARANCE,URINE HAZY
[2024-09-26 15:16] LABS: BACTERIA,URINE FEW (NEGATIVE); MUCUS,URINE LIGHT (NONE-MOD); SQUAMOUS EPITHELIAL CELLS,UR MODERATE; WBC,URINE 0-2 (0-5/HPF)
[2024-09-26 16:14] LABS: CANDIDA DNA PROBE POSITIVE (NEGATIVE); GARDNERELLA DNA PROBE NEGATIVE (NEGATIVE); TRICHOMONAS DNA PROBE NEGATIVE (NEGATIVE)
[2024-09-26] MEDS: Fluconazole 150 MG Tab PO ONE (16:28)
[2024-09-26 16:44] VITALS: BP 122/81; PULSE 92
== END 2024-09-26 16:43 | disposition home or self-care (01) ==
LOC: MW.ED 12:12
DX: B34.9 Viral infection, unspecified (principal); B37.9 Candidiasis, unspecified; I10 Essential (primary) hypertension; E11.9 Type 2 diabetes mellitus without complications; Z90.49 Acquired absence of other specified parts of digestive tract; Z79.899 Other long term (current) drug therapy; Z79.84 Long term (current) use of oral hypoglycemic drugs
CPT/HCPCS: 36415; 71046; 80053; 81001; 85025; 87428; 87480; 87510; 87660; 96361; 96374; 99283; A9270; J1885; J7030